=== PATIENT | male | born 1965 | race Caucasian/White ===

== ENCOUNTER → 2018-05-18 09:26 | Outpatient (CLI) | payer OTHER, SELFPAY ==
[2018-05-18 12:14] LABS: Absolute Lymphocyte Count 0.69 X10^3/ul (0.83-4.51); Absolute Neutrophil Count 2.5 X10^3/uL (2.0-7.7); Basophil# 0.01 X10^3/uL; Basophil% 0.3 % (0-1); Eosinophil# 0.18 X10^3/uL; Eosinophils% 4.7 % (0-5); Hematocrit 35.7 % (40-54); Hemoglobin 11.4 g/dl (13.0-16.5); Lymphocyte # 0.69 X10^3/ul (4.0); Lymphocyte % 18.1 % (19-41); Mean Corp Hgb Conc 31.9 g/gl (32-36); Mean Corpuscular Hgb 27.4 pg (27.0-32.0); Mean Corpuscular Volume 85.8 fL (80-94); Mean Platelet Vol. 10.6 fl (6.2-12.0); Monocyte% 10.5 % (0-10); Neutrophil # 2.51 X10^3/uL (2.7-7.7); Neutrophil % 65.6 % (47-70); Platelet Count 126 K/mm3 (150-450); RBC Distribution Width SD 45.9 fl (35.1-43.9); Red Blood Count 4.16 M/mm3 (4.6-6.2); White Blood Count 3.8 K/mm3 (4.4-11.0)
[2018-05-18 12:15] LABS: POSITIVE COUNT NO; POSITIVE DIFFERENTIAL NO; POSITIVE MORPHOLOGY NO
[2018-05-18 12:18] LABS: Color, Urine Yellow (Yellow); Glucose, Dipstick Normal (Normal); Ketone-Dipstick Negative (Negative); Leukocyte Esterase-Dipstick Negative /ul (Negative); Nitrite-Dipstick Negative (Negative); Occult Blood-Urine Negative /ul (Negative); Protein-Dipstick Negative (Negative); Specific Gravity, Urine 1.015 (1.002-1.030); Urine Bilirubin Dipstick Negative (Negative); Urine Clarity Sl. Cloudy (Clear); Urine Urobilinogen Normal (Normal)
[2018-05-18 12:29] LABS: ALB/GLOB Ratio 0.9 RATIO (0.9-2.4); AST(SGOT) 16 U/L (15-37); Alanine Aminotransfer ALT/SGPT 20 U/L (16-61); Albumin, Serum 3.8 g/dL (3.2-5.0); Alkaline Phosphatase 96 U/L (45-117); Anion Gap 9 (5-15); BUN 17 mg/dL (7-18); BUN/Creat Ratio 17.3 RATIO (10-20); Calcium,Total 8.5 mg/dL (8.5-10.1); Chloride 106 mmol/L (98-107); Cholesterol 115 mg/dL (200); Creatinine, Serum 0.98 mg/dL (0.70-1.30); EST Glomerular Filtration Rate 85 mL/min (>60); Est Glom Filt Rate - Afr Amer 103 mL/min (>60); Globulin 4.1 g/dL (2.2-4.2); Glucose 88 mg/dL (74-106); High Density Lipoprotein 25 mg/dL; PSA,Total - Annual Screen 1.21 ng/mL (0.00-4.00); Potassium 4.3 mmol/L (3.5-5.1); Protein, Total 7.9 g/dL (6.4-8.2); Sodium Level 139 mmol/L (136-145); Triglycerides 75 mg/dL; Very Low Density Lipoprotein 15 mg/dL (5-40)
== END ==
PROVIDERS: Family Provider Family Medicine; PCP Family Medicine; Visit Provider Family Medicine
DX: Z00.00 Encounter for general adult medical examination without abnormal findings (principal); I10 Essential (primary) hypertension
CPT/HCPCS: 36415; 80053; 80061; 81002; 84153; 85025; G0103

== ENCOUNTER → 2018-09-09 08:12 | Outpatient (CLI) | payer OTHER, SELFPAY ==
--- NOTE | 2018-09-09 08:14 | CT_ITS ---
STUDY: CT BRAIN WITH AND WITHOUT CONTRAST REASON FOR EXAM: Male, 53 years old. Headaches. RADIATION DOSAGE (If Supplied By Facility): CTDIvol = ( 44.99 ) mGy, DLP = ( 1547.23 ) mGycm TECHNIQUE: Transaxial CT imaging of the brain was performed pre and post contrast administration. The examination was performed with intravenous administration of 50mL ml of Isovue 370 contrast material. Individualized dose optimization techniques were used for this CT. COMPARISON: None. FINDINGS: Normal soft tissue structures. Normal calvarium. Normal size ventricles and extra-axial spaces for the patient's age. Normal white matter tracts of the cerebral hemispheres. Normal basal ganglia and thalami. Normal brainstem. Normal cerebellum. There is no intracranial hemorrhage. There are no findings of an acute ischemic infarction. Chronic inflammatory changes in the right maxillary sinus. A retention cyst in the left maxillary sinus. CT/Brain/Head W/WO Contrast IMPRESSION: No acute findings in the brain. Chronic inflammatory changes in the right maxillary sinus and a retention cyst in the left maxillary sinus Electronically Signed: Tylor Lang MD at 4:15 EST Tel , Service support ,
== END ==
PROVIDERS: Family Provider Family Medicine; PCP Family Medicine; Referring Provider Family Medicine; Visit Provider Family Medicine
DX: R51 Headache (principal); R42 Dizziness and giddiness
CPT/HCPCS: 70470; Q9967

== ENCOUNTER → 2018-12-07 07:14 | Outpatient (CLI) | payer OTHER, SELFPAY ==
[2018-12-07 10:32] LABS: Anion Gap 8 (5-15); BUN 26 mg/dL (7-18); BUN/Creat Ratio 18.3 RATIO (10-20); Chloride 99 mmol/L (98-107); Creatinine, Serum 1.42 mg/dL (0.70-1.30); EST Glomerular Filtration Rate 56 mL/min (>60); Est Glom Filt Rate - Afr Amer 67 mL/min (>60); Glucose 106 mg/dL (74-106); Potassium 3.2 mmol/L (3.5-5.1); Sodium Level 138 mmol/L (136-145)
== END ==
PROVIDERS: Family Provider Family Medicine; PCP Family Medicine; Referring Provider Family Medicine; Visit Provider Family Medicine
DX: I10 Essential (primary) hypertension (principal)
CPT/HCPCS: 36415; 80048

== ENCOUNTER → 2019-01-02 08:26 | Outpatient (CLI) | payer OTHER, SELFPAY ==
[2019-01-02 10:41] LABS: Anion Gap 7 (5-15); BUN 25 mg/dL (7-18); BUN/Creat Ratio 18.8 RATIO (10-20); Calcium,Total 8.6 mg/dL (8.5-10.1); Chloride 102 mmol/L (98-107); Creatinine, Serum 1.33 mg/dL (0.70-1.30); EST Glomerular Filtration Rate 60 mL/min (>60); Est Glom Filt Rate - Afr Amer 73 mL/min (>60); Glucose 109 mg/dL (74-106); Potassium 3.7 mmol/L (3.5-5.1); Sodium Level 137 mmol/L (136-145)
== END ==
PROVIDERS: Family Provider Family Medicine; PCP Family Medicine; Referring Provider Family Medicine; Visit Provider Family Medicine
DX: E87.6 Hypokalemia (principal)
CPT/HCPCS: 36415; 80048

== ENCOUNTER → 2019-06-08 08:48 | Outpatient (CLI) | payer OTHER, SELFPAY ==
[2019-06-08 10:31] LABS: Absolute Lymphocyte Count 0.49 X10^3/uL (0.83-4.51); Absolute Neutrophil Count 2.2 X10^3/uL (2.0-7.7); Basophil# 0.02 X10^3/uL; Basophil% 0.6 % (0-1); Eosinophil# 0.24 X10^3/uL; Eosinophils% 7.2 % (0-5); Hematocrit 36.3 % (40-54); Hemoglobin 11.5 g/dL (13.0-16.5); Lymphocyte # 0.49 X10^3/ul (4.0); Lymphocyte % 14.7 % (19-41); Mean Corp Hgb Conc 31.7 g/dL (32-36); Mean Corpuscular Hgb 26.6 pg (27.0-32.0); Mean Corpuscular Volume 83.8 fL (80-94); Mean Platelet Vol. 10.1 fl (6.2-12.0); Monocyte# 0.38 X10^3/uL; Monocyte% 11.4 % (0-10); NRBC Flagged by Analyzer 0 % (0-5); Neutrophil # 2.18 X10^3/uL (2.7-7.7); Neutrophil % 65.5 % (47-70); POSITIVE DIFFERENTIAL YES; Platelet Count 117 K/mm3 (150-450); RBC Distribution Width CV 14.4 % (11.6-14.6); RBC Distribution Width SD 43.7 fl (35.1-43.9); Red Blood Count 4.33 M/mm3 (4.6-6.2); White Blood Count 3.3 K/mm3 (4.4-11.0)
[2019-06-08 10:37] LABS: Differential Indicated SCAN CRITERIA MET
[2019-06-08 11:00] LABS: Hypochromasia RARE; Platelet Estimate SLT DEC (ADEQ)
[2019-06-08 11:01] LABS: ALB/GLOB Ratio 0.9 RATIO (0.9-2.4); AST(SGOT) 17 U/L (15-37); Alanine Aminotransfer ALT/SGPT 16 U/L (16-61); Albumin, Serum 3.7 g/dL (3.2-5.0); Alkaline Phosphatase 109 U/L (45-117); Anion Gap 5 (5-15); BUN 20 mg/dL (7-18); BUN/Creat Ratio 16.3 RATIO (10-20); Calcium,Total 8.6 mg/dL (8.5-10.1); Chloride 104 mmol/L (98-107); Cholesterol 117 mg/dL (200); Creatinine, Serum 1.23 mg/dL (0.70-1.30); EST Glomerular Filtration Rate 66 mL/min (>60); Est Glom Filt Rate - Afr Amer 79 mL/min (>60); Globulin 4.1 g/dL (2.2-4.2); Glucose 93 mg/dL (74-106); High Density Lipoprotein 29 mg/dL; PSA,Total - Annual Screen 1.72 ng/mL (0.00-4.00); Potassium 4.1 mmol/L (3.5-5.1); Protein, Total 7.8 g/dL (6.4-8.2); Sodium Level 140 mmol/L (136-145); Triglycerides 64 mg/dL; Very Low Density Lipoprotein 13 mg/dL (5-40)
[2019-06-08 15:44] LABS: Color, Urine Yellow (Yellow); Glucose, Dipstick Normal (Normal); Ketone-Dipstick Negative (Negative); Leukocyte Esterase-Dipstick Negative /ul (Negative); Nitrite-Dipstick Negative (Negative); Occult Blood-Urine Negative /ul (Negative); Protein-Dipstick Negative (Negative); Specific Gravity, Urine 1.005 (1.002-1.030); Urine Bilirubin Dipstick Negative (Negative); Urine Clarity Clear (Clear); Urine Urobilinogen Normal (Normal)
[2019-06-09 15:13] LABS: Pathologist Review Reviewed
== END ==
PROVIDERS: Family Provider Family Medicine; PCP Family Medicine; Referring Provider Family Medicine; Visit Provider Family Medicine
DX: Z00.00 Encounter for general adult medical examination without abnormal findings (principal); I10 Essential (primary) hypertension; E87.6 Hypokalemia; Z12.5 Encounter for screening for malignant neoplasm of prostate
CPT/HCPCS: 36415; 80053; 80061; 81002; 84153; 85025; G0103

== ENCOUNTER 2020-07-21 00:46 | Emergency (ER) | payer OTHER, SELFPAY ==
[2020-07-21 00:47] VITALS: BP 157/115; PULSE 98; RESP 16; TEMP 36.7; O2SAT 97; BMI 35.7
--- NOTE | 2020-07-21 00:59 | EKG12_ITS ---
Test Reason : SHOULDER PAIN Blood Pressure : / mmHG Vent. Rate : 094 BPM Atrial Rate : 094 BPM P-R Int : 174 ms QRS Dur : 090 ms QT Int : 368 ms P-R-T Axes : 030 009 028 degrees QTc Int : 460 ms Normal sinus rhythm Minimal voltage criteria for LVH, may be normal variant Borderline ECG Confirmed by ALEX GREENFIELD, CORTEZ ([id number]), general expeditor HECTOR BETTS ([id number]) on 07/23/2020 11:22:48 AM Referred By: REED Confirmed By:CORTEZ JOHNSON MD
--- NOTE | 2020-07-21 01:04 | RAD_ITS ---
STUDY: X-RAY CHEST REASON FOR EXAM: Male, 55 years old. Pain top of left shoulder. No history of trauma. TECHNIQUE: AP portable chest. COMPARISON: None. FINDINGS: The lungs are clear and expanded. There is no demonstrated pleural abnormality. Normal size heart. Normal mediastinum and kaitlin. Normal visualized pulmonary arteries. Normal visualized aortic arch and descending thoracic aorta. Normal visualized thoracic spine. Normal visualized ribs, clavicles, and shoulders. There is no demonstrated abnormality of the visualized soft tissue structures of the upper abdomen. RAD/Chest 1 View (Portable) IMPRESSION: Normal x-ray examination of the chest. Electronically Signed: Yuval Mosley MD at 1:26 EDT , Service support ,
[2020-07-21 01:10] LABS: Absolute Lymphocyte Count 1.03 X10^3/uL (0.83-4.51); Basophil# 0.01 X10^3/uL; Basophil% 0.3 % (0-1); Eosinophil# 0.05 X10^3/uL; Eosinophils% 1.5 % (0-5); Hematocrit 34.2 % (40-54); Hemoglobin 10.5 g/dL (13.0-16.5); Lymphocyte # 1.03 X10^3/ul (4.0); Lymphocyte % 30.6 % (19-41); Mean Corp Hgb Conc 30.7 g/dL (32-36); Mean Corpuscular Volume 78.1 fL (80-94); Mean Platelet Vol. 9.3 fl (6.2-12.0); Monocyte% 8.9 % (0-10); NRBC Flagged by Analyzer 0 % (0-5); Neutrophil # 1.95 X10^3/uL (2.7-7.7); Neutrophil % 57.8 % (47-70); POSITIVE COUNT YES; Platelet Count 79 K/mm3 (150-450); RBC Distribution Width CV 16.7 % (11.6-14.6); RBC Distribution Width SD 47.2 fl (35.1-43.9); Red Blood Count 4.38 M/mm3 (4.6-6.2); White Blood Count 3.4 K/mm3 (4.4-11.0)
[2020-07-21 01:11] LABS: Differential Indicated SCAN CRITERIA MET
--- NOTE | 2020-07-21 01:19 | ED.VISSUMM ---
- ER Visit Summary Date of Service: 07/21/20 Chief Complaint: Left shoulder pain History of Present Illness: The patient is a 55 M who presents with left shoulder pain that began tonight while he was driving. Patient states the pain is sharp. Patient states the pain is over the anterior aspect of the left shoulder. Patient states pain is worse with certain movements. Patient states the pain is better with standing. Patient denies any trauma or injury. Patient denies any shortness of breath or cough. Patient denies any chest pain or palpitations. Patient denies any nausea or vomiting. Physical Examination: Vital signs are stable. Patient is afebrile. Patient is in no acute distress. Oral mucosa is pink and moist. Neck is supple. Trachea is midline. There is no JVD noted. Heart was regular rate and rhythm. Lungs are clear and equal bilaterally. Abdomen is soft. Bowel sounds are normal. There is no tenderness. There is no rebound or guarding noted. Skin is warm dry. Cranial nerves II through XII are intact. There are no focal motor or sensory deficits noted. Extremities are intact. There is tenderness over the anterior aspect of the left shoulder. There is no deformity noted. Range of motion was slightly limited in flexion secondary to pain. There is no laxity appreciated. Radial pulses are equal bilaterally. Test Results: EKG showed normal sinus rhythm with a rate of 94. There are no acute ST or T wave changes. Portable chest x-ray was obtained. There is no acute cardiopulmonary process. There is no acute fracture of the shoulder. This was interpreted by the radiologist and reviewed by myself. CBC shows a mild thrombocytopenia of 79. Creatinine was slightly elevated at 1.42. Troponin was normal. Emergency Department Course and Treatment: Patient was advised of his findings. Patient was given a dose of [place] here. Patient was given a prescription for short course of [place]. Patient was instructed to use ice to the area. Patient was instructed to follow-up with his primary care physician in 5 to 7 days. Patient understood and was agreeable with the plan. All questions were answered. Disposition: Discharge home Impression: Tendinitis left shoulder This note was generated with [employer] software. It may contain incorrect words, spelling, and punctuation that were not noted in review of the chart prior to signing ED Disposition - Plan for ED Patient: Disposition: Home or Assisted Living Diagnosis: Tendinitis of left shoulder Instructions: ED Shoulder Pain Uncertain Cause Prescriptions: Hydrocodone Bitart/Apap 5-325 [[place] 5MG-325MG] 1 tab PO Q6H PRN PRN 3 Days #10 tab PRN Reason: Pain Prescription Printed Referrals: José Antonio Merritt MD [Primary Care Provider] - 3-5 Days
[2020-07-21 01:29] LABS: Anion Gap 5 (5-15); BUN 23 mg/dL (7-18); BUN/Creat Ratio 16.2 RATIO (10-20); Calcium,Total 8.7 mg/dL (8.5-10.1); Chloride 102 mmol/L (98-107); Creatinine, Serum 1.42 mg/dL (0.70-1.30); EST Glomerular Filtration Rate 55 mL/min (>60); Est Glom Filt Rate - Afr Amer 67 mL/min (>60); Estimated Creatinine Clearance 64.08 ml/min; Glucose 122 mg/dL (74-106); Potassium 3.4 mmol/L (3.5-5.1); Sodium Level 135 mmol/L (136-145)
[2020-07-21 01:31] LABS: Anisocytosis 1+; Hypochromasia 1+; Microcytosis 1+; Ovalocyte 1+; Platelet Estimate MOD DEC (ADEQ)
[2020-07-21] MEDS: HYDROcodone Bitartrate/Apap 5/325 Tablet PO (01:55)
[2020-07-21 01:56] VITALS: BP 119/58; PULSE 90; RESP 18
== END 2020-07-21 01:59 | disposition home or self-care (01) ==
PROVIDERS: Emergency Provider Emergency Medicine; PCP Family Medicine
DX: M75.92 Shoulder lesion, unspecified, left shoulder (principal); I10 Essential (primary) hypertension; H81.09 Meniere's disease, unspecified ear
CPT/HCPCS: 71045; 80048; 84484; 85025; 93005; 99285; A4216

== ENCOUNTER → 2020-08-08 07:16 | Outpatient (CLI) | payer OTHER, SELFPAY ==
[2020-07-21 00:47] VITALS: BMI 35.7
[2020-08-08 09:55] LABS: Color, Urine Yellow (Yellow); Glucose, Dipstick Normal (Normal); Ketone-Dipstick Negative (Negative); Leukocyte Esterase-Dipstick Negative /ul (Negative); Nitrite-Dipstick Negative (Negative); Occult Blood-Urine Negative /ul (Negative); Protein-Dipstick 30 mg/dl (Negative); Urine Bilirubin Dipstick Negative (Negative); Urine Clarity Clear (Clear); Urine Urobilinogen Normal (Normal)
[2020-08-08 10:21] LABS: ALB/GLOB Ratio 0.9 RATIO (0.9-2.4); AST(SGOT) 25 U/L (15-37); Alanine Aminotransfer ALT/SGPT 20 U/L (16-61); Albumin, Serum 3.9 g/dL (3.2-5.0); Alkaline Phosphatase 120 U/L (45-117); Anion Gap 3 (5-15); BUN 21 mg/dL (7-18); Calcium,Total 8.7 mg/dL (8.5-10.1); Chloride 105 mmol/L (98-107); Cholesterol 102 mg/dL (200); Creatinine, Serum 1.31 mg/dL (0.70-1.30); EST Glomerular Filtration Rate 61 mL/min (>60); Est Glom Filt Rate - Afr Amer 74 mL/min (>60); Globulin 4.2 g/dL (2.2-4.2); Glucose 104 mg/dL (74-106); High Density Lipoprotein 23 mg/dL; Potassium 3.5 mmol/L (3.5-5.1); Protein, Total 8.1 g/dL (6.4-8.2); Sodium Level 138 mmol/L (136-145); Triglycerides 65 mg/dL; Very Low Density Lipoprotein 13 mg/dL (5-40)
[2020-08-08 10:23] LABS: Absolute Neutrophil Count 1.4 X10^3/uL (2.0-7.7); Basophil# 0.01 X10^3/uL; Basophil% 0.4 % (0-1); Eosinophil# 0.04 X10^3/uL; Eosinophils% 1.5 % (0-5); Hematocrit 31.7 % (40-54); Hemoglobin 9.7 g/dL (13.0-16.5); Lymphocyte % 34.6 % (19-41); Mean Corp Hgb Conc 30.6 g/dL (32-36); Mean Corpuscular Hgb 24.5 pg (27.0-32.0); Mean Corpuscular Volume 80.1 fL (80-94); Mean Platelet Vol. 10.8 fl (6.2-12.0); Monocyte# 0.21 X10^3/uL; Monocyte% 8.1 % (0-10); NRBC Flagged by Analyzer 0 % (0-5); Neutrophil # 1.39 X10^3/uL (2.7-7.7); Neutrophil % 53.5 % (47-70); POSITIVE COUNT YES; Platelet Count 81 K/mm3 (150-450); RBC Distribution Width CV 17.8 % (11.6-14.6); RBC Distribution Width SD 51.3 fl (35.1-43.9); Red Blood Count 3.96 M/mm3 (4.6-6.2); White Blood Count 2.6 K/mm3 (4.4-11.0)
[2020-08-08 10:24] LABS: Differential Indicated SCAN CRITERIA MET
[2020-08-08 11:14] LABS: Platelet Estimate MOD DEC (ADEQ)
== END ==
PROVIDERS: PCP Family Medicine; Referring Provider Family Medicine; Visit Provider Family Medicine
DX: Z00.00 Encounter for general adult medical examination without abnormal findings (principal); I10 Essential (primary) hypertension; E87.6 Hypokalemia; R79.1 Abnormal coagulation profile
CPT/HCPCS: 36415; 80053; 80061; 81002; 85025

== ENCOUNTER → 2021-08-04 07:49 | Outpatient (CLI) | payer OTHER, SELFPAY ==
[2021-08-04 10:05] LABS: Absolute Neutrophil Count 3.7 X10^3/uL (2.0-7.7); Basophil# 0.04 X10^3/uL; Basophil% 0.8 % (0-1); Eosinophil# 0.28 X10^3/uL; Eosinophils% 5.3 % (0-5); Hemoglobin 14.6 g/dL (13.0-16.5); Lymphocyte % 13.2 % (19-41); Mean Corpuscular Hgb 28.3 pg (27.0-32.0); Mean Corpuscular Volume 83.3 fL (80-94); Mean Platelet Vol. 10.8 fl (6.2-12.0); Monocyte# 0.52 X10^3/uL; Monocyte% 9.8 % (0-10); NRBC Flagged by Analyzer 0 % (0-5); Neutrophil # 3.71 X10^3/uL (2.7-7.7); Neutrophil % 69.6 % (47-70); Platelet Count 163 K/mm3 (150-450); RBC Distribution Width CV 14.7 % (11.6-14.6); RBC Distribution Width SD 44.7 fl (35.1-43.9); Red Blood Count 5.16 M/mm3 (4.6-6.2); White Blood Count 5.3 K/mm3 (4.4-11.0)
== END ==
PROVIDERS: PCP Family Medicine
DX: D61.818 Other pancytopenia (principal); C83.8 Other non-follicular lymphoma
CPT/HCPCS: 36415; 85025

== ENCOUNTER → 2021-09-16 07:51 | Outpatient (CLI) | payer OTHER, SELFPAY ==
[2021-09-16 09:52] LABS: Absolute Lymphocyte Count 0.82 X10^3/uL (0.83-4.51); Absolute Neutrophil Count 4.4 X10^3/uL (2.0-7.7); Basophil# 0.05 X10^3/uL; Basophil% 0.8 % (0-1); Eosinophil# 0.34 X10^3/uL; Eosinophils% 5.3 % (0-5); Hematocrit 45.4 % (40-54); Hemoglobin 15.1 g/dL (13.0-16.5); Lymphocyte # 0.82 X10^3/ul (0.83-4.51); Lymphocyte % 12.9 % (19-41); Mean Corp Hgb Conc 33.3 g/dL (32-36); Mean Corpuscular Hgb 27.7 pg (27.0-32.0); Mean Corpuscular Volume 83.2 fL (80-94); Mean Platelet Vol. 10.2 fl (6.2-12.0); Monocyte# 0.61 X10^3/uL; Monocyte% 9.6 % (0-10); NRBC Flagged by Analyzer 0 % (0-5); Neutrophil # 4.42 X10^3/uL (2.7-7.7); Neutrophil % 69.2 % (47-70); Platelet Count 173 K/mm3 (150-450); RBC Distribution Width CV 14.4 % (11.6-14.6); RBC Distribution Width SD 42.8 fl (35.1-43.9); Red Blood Count 5.46 M/mm3 (4.6-6.2); White Blood Count 6.4 K/mm3 (4.4-11.0)
== END ==
PROVIDERS: PCP Family Medicine
DX: D61.818 Other pancytopenia (principal)
CPT/HCPCS: 36415; 85025

== ENCOUNTER 2021-10-08 07:25 | Outpatient (CLI) | payer OTHER, SELFPAY ==
[2021-10-08 10:21] LABS: Absolute Lymphocyte Count 0.66 X10^3/uL (0.83-4.51); Absolute Neutrophil Count 4.2 X10^3/uL (2.0-7.7); Basophil# 0.05 X10^3/uL; Basophil% 0.9 % (0-1); Eosinophil# 0.27 X10^3/uL; Eosinophils% 4.7 % (0-5); Hematocrit 42.3 % (40-54); Hemoglobin 13.9 g/dL (13.0-16.5); Lymphocyte # 0.66 X10^3/ul (0.83-4.51); Lymphocyte % 11.5 % (19-41); Mean Corp Hgb Conc 32.9 g/dL (32-36); Mean Corpuscular Hgb 27.5 pg (27.0-32.0); Mean Corpuscular Volume 83.8 fL (80-94); Mean Platelet Vol. 10.5 fl (6.2-12.0); Monocyte# 0.51 X10^3/uL; Monocyte% 8.9 % (0-10); NRBC Flagged by Analyzer 0 % (0-5); Neutrophil # 4.21 X10^3/uL (2.7-7.7); Platelet Count 188 K/mm3 (150-450); RBC Distribution Width CV 14.8 % (11.6-14.6); RBC Distribution Width SD 44.6 fl (35.1-43.9); Red Blood Count 5.05 M/mm3 (4.6-6.2); White Blood Count 5.8 K/mm3 (4.4-11.0)
[2021-10-08 10:38] LABS: ALB/GLOB Ratio 0.9 RATIO (0.9-2.4); AST(SGOT) 19 U/L (15-37); Alanine Aminotransfer ALT/SGPT 35 U/L (16-61); Albumin, Serum 3.9 g/dL (3.2-5.0); Alkaline Phosphatase 108 U/L (45-117); Anion Gap 6 (5-15); BUN 19 mg/dL (7-18); BUN/Creat Ratio 15.2 RATIO (10-20); Chloride 102 mmol/L (98-107); Creatinine, Serum 1.25 mg/dL (0.70-1.30); EST Glomerular Filtration Rate 64 mL/min (>60); Est Glom Filt Rate - Afr Amer 77 mL/min (>60); Globulin 4.2 g/dL (2.2-4.2); Glucose 128 mg/dL (74-106); LDH 137 U/L (87-241); Potassium 3.6 mmol/L (3.5-5.1); Protein, Total 8.1 g/dL (6.4-8.2); Sodium Level 137 mmol/L (136-145)
[2021-10-08 10:39] LABS: Uric Acid 9.1 mg/dL (3.5-7.2)
== END 2021-10-08 23:59 | disposition short-term general hospital (02) ==
LOC: MTLAB 07:31
PROVIDERS: Podiatrist; PCP Family Medicine
DX: C83.8 Other non-follicular lymphoma (principal); M10.00 Idiopathic gout, unspecified site
CPT/HCPCS: 36415; 80053; 83615; 84550; 85025; 86140

== ENCOUNTER 2021-11-19 07:36 | Outpatient (CLI) | payer OTHER, SELFPAY ==
[2021-11-19 10:29] LABS: Absolute Lymphocyte Count 0.79 X10^3/uL (0.83-4.51); Absolute Neutrophil Count 4.5 X10^3/uL (2.0-7.7); Basophil# 0.04 X10^3/uL; Basophil% 0.6 % (0-1); Eosinophils% 4.8 % (0-5); Hemoglobin 14.3 g/dL (13.0-16.5); Lymphocyte # 0.79 X10^3/ul (0.83-4.51); Lymphocyte % 12.6 % (19-41); Mean Corp Hgb Conc 32.5 g/dL (32-36); Mean Corpuscular Hgb 27.3 pg (27.0-32.0); Mean Corpuscular Volume 84.1 fL (80-94); Mean Platelet Vol. 10.9 fl (6.2-12.0); Monocyte# 0.56 X10^3/uL; NRBC Flagged by Analyzer 0 % (0-5); Neutrophil # 4.51 X10^3/uL (2.7-7.7); Neutrophil % 72.2 % (47-70); Platelet Count 168 K/mm3 (150-450); RBC Distribution Width CV 14.9 % (11.6-14.6); RBC Distribution Width SD 45.3 fl (35.1-43.9); Red Blood Count 5.23 M/mm3 (4.6-6.2); White Blood Count 6.3 K/mm3 (4.4-11.0)
[2021-11-19 11:16] LABS: ALB/GLOB Ratio 1.1 RATIO (0.9-2.4); AST(SGOT) 18 U/L (15-37); Alanine Aminotransfer ALT/SGPT 28 U/L (16-61); Alkaline Phosphatase 99 U/L (45-117); Anion Gap 7 (5-15); BUN 18 mg/dL (7-18); BUN/Creat Ratio 12.9 RATIO (10-20); Calcium,Total 9.2 mg/dL (8.5-10.1); Chloride 102 mmol/L (98-107); Creatinine, Serum 1.39 mg/dL (0.70-1.30); EST Glomerular Filtration Rate 57 mL/min (>60); Est Glom Filt Rate - Afr Amer 68 mL/min (>60); Globulin 3.8 g/dL (2.2-4.2); Glucose 129 mg/dL (74-106); LDH 152 U/L (87-241); Potassium 3.4 mmol/L (3.5-5.1); Protein, Total 7.8 g/dL (6.4-8.2); Sodium Level 138 mmol/L (136-145)
== END 2021-11-19 23:59 | disposition home or self-care (01) ==
LOC: MTLAB 07:38
PROVIDERS: PCP Family Medicine
DX: C83.8 Other non-follicular lymphoma (principal)
CPT/HCPCS: 36415; 80053; 83615; 85025

== ENCOUNTER 2021-12-02 14:07 | Outpatient (CLI) | payer OTHER, SELFPAY ==
--- NOTE | 2021-12-02 14:15 | RAD_ITS ---
STUDY: X-RAY - PELVIS AND LEFT HIP REASON FOR EXAM: Male, 56 years old. Pain. TECHNIQUE: 3 views of the pelvis and hip. COMPARISON: 05/12/2016. FINDINGS: There is a non-specific bowel gas pattern. Phleboliths. Normal bilateral iliac wings, sacroiliac joints and visualized sacrum. Normal bilateral superior and inferior pubic rami. Normal pubic symphysis. Normal bilateral ischial tuberosities. Stable arthrosis of both hips, left slightly greater than right. Slight progression of subchondral cyst formation in the left acetabulum. RAD/HIP, UNI W/ Pelvis 2-3 Views IMPRESSION: Arthrosis of both hips, left greater than right. Slight progression of left hip arthrosis. No acute abnormality, evidence of erosive change or fusion. Electronically Signed: Shoaib Jean MD at 9:27 EDT ,
[2021-12-02 18:16] LABS: Uric Acid 9.1 mg/dL (3.5-7.2)
== END 2021-12-02 23:59 | disposition home or self-care (01) ==
LOC: MTLAB 14:08
PROVIDERS: PCP Family Medicine; Referring Provider Family Medicine; Visit Provider Family Medicine
DX: M10.9 Gout, unspecified (principal); M25.552 Pain in left hip
CPT/HCPCS: 36415; 73502; 84550

== ENCOUNTER 2021-12-31 07:38 | Outpatient (CLI) | payer OTHER, SELFPAY ==
[2021-12-31 10:17] LABS: Absolute Lymphocyte Count 0.85 X10^3/uL (0.83-4.51); Absolute Neutrophil Count 5.2 X10^3/uL (2.0-7.7); Basophil# 0.06 X10^3/uL; Basophil% 0.8 % (0-1); Eosinophil# 0.27 X10^3/uL; Eosinophils% 3.8 % (0-5); Hematocrit 42.7 % (40-54); Hemoglobin 14.4 g/dL (13.0-16.5); Lymphocyte # 0.85 X10^3/ul (0.83-4.51); Lymphocyte % 11.9 % (19-41); Mean Corp Hgb Conc 33.7 g/dL (32-36); Mean Corpuscular Hgb 27.9 pg (27.0-32.0); Mean Corpuscular Volume 82.8 fL (80-94); Mean Platelet Vol. 10.7 fl (6.2-12.0); Monocyte# 0.68 X10^3/uL; Monocyte% 9.5 % (0-10); NRBC Flagged by Analyzer 0 % (0-5); Neutrophil # 5.22 X10^3/uL (2.7-7.7); Neutrophil % 73.2 % (47-70); Platelet Count 179 K/mm3 (150-450); RBC Distribution Width CV 14.8 % (11.6-14.6); RBC Distribution Width SD 44.8 fl (35.1-43.9); Red Blood Count 5.16 M/mm3 (4.6-6.2); White Blood Count 7.1 K/mm3 (4.4-11.0)
[2021-12-31 10:51] LABS: ALB/GLOB Ratio 1.1 RATIO (0.9-2.4); AST(SGOT) 19 U/L (15-37); Alanine Aminotransfer ALT/SGPT 31 U/L (16-61); Albumin, Serum 4.1 g/dL (3.2-5.0); Alkaline Phosphatase 116 U/L (45-117); Anion Gap 5 (5-15); BUN 24 mg/dL (7-18); BUN/Creat Ratio 18.8 RATIO (10-20); Calcium,Total 9.4 mg/dL (8.5-10.1); Chloride 102 mmol/L (98-107); Creatinine, Serum 1.28 mg/dL (0.70-1.30); EST Glomerular Filtration Rate 62 mL/min (>60); Est Glom Filt Rate - Afr Amer 75 mL/min (>60); Globulin 3.9 g/dL (2.2-4.2); Glucose 133 mg/dL (74-106); LDH 143 U/L (87-241); Potassium 3.6 mmol/L (3.5-5.1); Sodium Level 136 mmol/L (136-145)
== END 2021-12-31 23:59 | disposition home or self-care (01) ==
PROVIDERS: PCP Family Medicine
DX: C83.8 Other non-follicular lymphoma (principal)
CPT/HCPCS: 36415; 80053; 83615; 85025

== ENCOUNTER → 2022-02-12 | Outpatient (CLI) | payer OTHER, SELFPAY ==
[2022-02-12 10:02] LABS: Absolute Lymphocyte Count 0.76 X10^3/uL (0.83-4.51); Absolute Neutrophil Count 4.2 X10^3/uL (2.0-7.7); Basophil# 0.04 X10^3/uL; Basophil% 0.7 % (0-1); Eosinophil# 0.37 X10^3/uL; Eosinophils% 6.3 % (0-5); Hematocrit 41.4 % (40-54); Hemoglobin 13.6 g/dL (13.0-16.5); Lymphocyte # 0.76 X10^3/ul (0.83-4.51); Lymphocyte % 12.9 % (19-41); Mean Corp Hgb Conc 32.9 g/dL (32-36); Mean Corpuscular Hgb 27.9 pg (27.0-32.0); Mean Platelet Vol. 10.6 fl (6.2-12.0); Monocyte% 8.5 % (0-10); NRBC Flagged by Analyzer 0 % (0-5); Neutrophil # 4.17 X10^3/uL (2.7-7.7); Neutrophil % 70.9 % (47-70); Platelet Count 164 K/mm3 (150-450); RBC Distribution Width CV 14.1 % (11.6-14.6); RBC Distribution Width SD 43.5 fl (35.1-43.9); Red Blood Count 4.87 M/mm3 (4.6-6.2); White Blood Count 5.9 K/mm3 (4.4-11.0)
[2022-02-12 10:32] LABS: Hemoglobin A1c 5.4 % (3.8-5.6)
[2022-02-12 10:40] LABS: ALB/GLOB Ratio 1.1 RATIO (0.9-2.4); AST(SGOT) 15 U/L (15-37); Alanine Aminotransfer ALT/SGPT 28 U/L (16-61); Alkaline Phosphatase 99 U/L (45-117); Anion Gap 6 (5-15); BUN 17 mg/dL (7-18); BUN/Creat Ratio 13.7 RATIO (10-20); Calcium,Total 8.8 mg/dL (8.5-10.1); Chloride 107 mmol/L (98-107); Creatinine, Serum 1.24 mg/dL (0.70-1.30); EST Glomerular Filtration Rate 64 mL/min (>60); Est Glom Filt Rate - Afr Amer 78 mL/min (>60); Globulin 3.7 g/dL (2.2-4.2); Glucose 110 mg/dL (74-106); LDH 153 U/L (87-241); Potassium 4.3 mmol/L (3.5-5.1); Protein, Total 7.7 g/dL (6.4-8.2); Sodium Level 140 mmol/L (136-145)
== END | disposition home or self-care (01) ==
LOC: MTLAB 07:15
PROVIDERS: PCP Family Medicine; Referring Provider Family Medicine; Visit Provider Family Medicine
DX: R73.9 Hyperglycemia, unspecified (principal); C83.8 Other non-follicular lymphoma; E87.6 Hypokalemia
CPT/HCPCS: 36415; 80053; 83036; 83615; 85025

== ENCOUNTER → 2022-06-08 | Outpatient (CLI) | payer OTHER, SELFPAY | END | disposition home or self-care (01) | PROVIDERS: PCP Family Medicine; Visit Provider Podiatrist | DX: D21.21 Benign neoplasm of connective and other soft tissue of right lower limb, including hip (principal) ==

== ENCOUNTER 2023-11-08 08:23 | Day surgery (SDC) | payer OTHER, SELFPAY ==
[2023-11-08] VITALS (7 sets, daily range): BP systolic 122–135; BP diastolic 76–89; PULSE 95–116; RESP 16–17; TEMP 36.7–37.2; O2SAT 93–97; BMI 39.6
[2023-11-08] MEDS: Lactated Ringers 1,000 ML 15 ML IV (08:49)
--- OUTSIDE RECORDS SUMMARY | 2023-11-08 08:52 | XMS RPT_ITS | CCD ---
Author Name Unknown Address [address] [place] [address] Organization [facility] Care Team Providers Care Hospice Plan Administrator Name Role Phone José Antonio Meyer Unavailable Unavailable Unavailable José Antonio Meyer MD Primary Care Provider José Antonio Meyer MD Primary Care Provider José Antonio Meyer MD Primary Care Provider Tierney Palmer PA-C Unavailable José Antonio Meyer MD Primary Care Provider TIERNEY PALMER Referring Unavailable JOSÉ ANTONIO MEYER Primary Care Unavailab le TIERNEY PALMER Referring Unavailable JOSÉ ANTONIO MEYER Primary Care Unavailab le TIERNEY PALMER Referring Unavailable JOSÉ ANTONIO MEYER Primary Care Unavailab JOSÉ ANTONIO Bartholomew Referring Unavailab JOSÉ ANTONIO Bartholomew Primary Care Unavailab le TIERNEY PALEMR Referring Unavailable JOSÉ ANTONIO MEYER Primary Care Unavailab le TIERNEY PALMER Referring Unavailable JOSÉ ANTONIO MEYER Primary Care Unavailab Lupillo Bruno MD Unavailable José Antonio Meyer MD Primary Care Provider Omid Pickering MD Unavailable TIERNEY PALMER Attending Unavailable JOSÉ ANTONIO MEYER Primary Care Unavailab le TIERNEY PALMER Attending Unavailable JOSÉ ANTONIO MEYER Primary Care Unavailab le JOSÉ ANTONIO MEYER Attending Unavailab le JOSÉ ANTONIO MEYER Primary Care Unavailab le JOSÉ ANTONIO MEYER Attending JOSÉ ANTONIO Mg Primary Care UnavailJOSÉ ANTONIO Becerra Attending UnavailJOSÉ ANTONIO Becerra Primary Care UnavailTIERNEY Gutiérrez Attending Unavailable JOSÉ ANTONIO MEYER Primary Care Unavailab waldemar Medications Current Medications Medication Drug Class(es) Dates Sig (Normalized) Sig (Original) hydroCHLOROthiazide 12.5 mg / lisinopril 10 mg oral tablet (2 sources) Thiazide Diuretic, Angiotensin Converting Enzyme Inhibitor Start: 10-11-2023 End: 10-10-2024 take 10-12.5 mg by mouth once lisinopril-hydr oCHLOROthiazide (ZESTORETIC) 10-12.5 mg per tablet Take 1 tablet by mouth once daily. 90 tablet 3 10/11/2023 10/10/2024 Active Completed/Discontinued Medications Medication Drug Class(es) Dates Sig (Normalized) Sig (Original) aliskiren 300 mg oral tablet (8 sources) Renin Inhibitor Start: 09-27-2009 End: 07-01-2022 aliskiren hemifumarate(TEKTURN A 300 MG TAB) Take one(1) tablet daily. 0 09/27/2009 07/01/2022 Discontinued (Course of therapy completed) Problems Active Problems Problem Classification Problem Date Documented Date Episodic/Chronic Coagulation and hemorrhagic disorders (20 sources) Platelet count below reference range; Translations: [Thrombocytopenia, unspecified] Onset: 08-20-2008 08-20-2008 Chronic Conditions associated with dizziness or vertigo (17 sources) Meniere's disease; Translations: [Meniere's disease, unspecified ear] Onset: 11-02-2018 01-29-2022 Chronic Deficiency and other anemia (17 sources) Pancytopenia; Translations: [Other pancytopenia] Onset: 08-08-2020 01-29-2022 Chronic Diabetes mellitus without complication (20 sources) Hyperglycemia; Translations: [Hyperglycemia, unspecified] Onset: 12-30-2021 01-29-2022 Episodic Essential hypertension (17 sources) Benign hypertension; Translations: [Essential (primary) hypertension] Onset: 04-01-2017 01-29-2022 Chronic Gout and other crystal arthropathies (17 sources) Gout; Translations: [Gout, unspecified] Onset: 12-01-2021 01-29-2022 Chronic Non-Hodgkin`s lymphoma (9 sources) Marginal zone lymphoma of spleen; 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, spleen] Onset: 02-10-2021 Chronic Other connective tissue disease (1 source) Ganglion of foot; Translations: [Ganglion, unspecified ankle and foot] 10-28-2023 Episodic Other ear and sense organ disorders (7 sources) Sensorineural hearing loss, bilateral; Translations: [Sensorineural hearing loss, bilateral] Onset: 02-19-2023 02-19-2023 Chronic Other non-traumatic joint disorders (1 source) Multiple joint pain; Translations: [Pain in unspecified joint] Episodic Other non-traumatic joint disorders (1 source) Pain in left knee; Translations: [Pain in joint, lower leg] Episodic Other nutritional; endocrine; and metabolic disorders (17 sources) Obesity; Translations: [Obesity, unspecified] Onset: 05-07-2006 05-07-2006 Chronic Spondylosis; intervertebral disc disorders; other back problems (1 source) Acute low back pain; Translations: [Acute left-sided low back pain without sciatica] Episodic Unclassified (1 source) Pre-Op Exam Onset: 10-25-2023 Past or Other Problems Problem Classification Problem Date Documented Da te Episodic/Chronic Abdominal pain (17 sources) Abdominal pain; Translations: [Unspecified abdominal pain] Onset: 10-19-2019 01-29-2022 Episodic Conditions associated with dizziness or vertigo (20 sources) Dizziness; Translations: [Dizziness and giddiness] Onset: 07-20-2018 01-29-2022 Episodic Fluid and electrolyte disorders (17 sources) Hypokalemia; Translations: [Hypokalemia] Onset: 12-08-2018 01-29-2022 Episodic Headache; including migraine (17 sources) Headache; Translations: [Headaches] Onset: 09-06-2018 01-29-2022 Episodic Other aftercare (3 sources) Removal of sutures done; Translations: [Encounter for removal of sutures] Onset: 08-26-2020 01-29-2022 Episodic Other and unspecified benign neoplasm (17 sources) Dermal cellular nevus ; Translations: [Other benign neoplasm of skin, unspecified] Onset: 08-14-2020 01-29-2022 Episodic Other bone disease and musculoskeletal deformities (17 sources) Costal chondritis; Translations: [Chondrocostal junction syndrome [Tietze]] Onset: 07-29-2020 01-29-2022 Episodic Other connective tissue disease (5 sources) Tendinitis of shoulder region; Translations: [Other enthesopathies, not elsewhere classified] Onset: 02-19-2023 02-19-2023 Episodic Other gastrointestinal disorders (5 sources) Splenomegaly; Translations: [Splenomegaly, not elsewhere classified] Onset: 02-19-2023 02-19-2023 Episodic Other non-epithelial cancer of skin (17 sources) Carcinoma in situ of skin of upper limb; Translations: [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, including shoulder] Onset: 08-23-2020 01-29-2022 Episodic Other non-traumatic joint disorders (18 sources) Hip pain; Translations: [Pain in left hip] Onset: 12-01-2021 01-29-2022 Episodic Other non-traumatic joint disorders (13 sources) Shoulder pain; Translations: [Pain in left shoulder] Onset: 07-29-2020 01-29-2022 Episodic Other non-traumatic joint disorders (4 sources) Pain in left shoulder; Translations: [Pain in joint, shoulder region] Onset: 07-29-2020 01-29-2022 Episodic Other screening for suspected conditions (not mental disorders or infectious disease) (19 sources) Patient encounter status; Translations: [Encounter for screening for malignant neoplasm of prostate] Onset: 05-10-2018 01-29-2022 Episodic Other skin disorders (1 source) Other hypertrophic disorders of the skin; Translations: [Skin tag] Onset: 11-09-2022 Episodic Viral infection (17 sources) Herpes zoster; Translations: [Zoster without complications] Onset: 01-01-2020 01-29-2022 Episodic Results Test Name Value Interpretation Reference Range Facil ity Vital Signs Date Time Vital Sign Value Performing Clinician Faci lity 10-25-2023 10:46-0500 Body height 179.1 cm José Antonio Meyer MD Work Phone: [facility] 10-25-2023 10:46-0500 Body temperature 97.2 [degF] José Antonio Meyer MD Work Phone: [facility] 10-25-2023 10:46-0500 Body weight 129.5 kg José Antonio Meyer MD Work Phone: [facility] 10-25-2023 10:46-0500 Diastolic blood pressure 82 mm[Hg] José Antonio Meyer MD Work Phone: [facility] 10-25-2023 10:46-0500 Heart rate 88 /min José Antonio Meyer MD Work Phone: [facility] 10-25-2023 10:46-0500 Respiratory rate 18 /min José Antonio Meyer MD Work Phone: [facility] 10-25-2023 10:46-0500 SaO2% (BldA) [Mass fraction] 98 % José Antonio Meyer MD Work Phone: [facility] 10-25-2023 10:46-0500 Systolic blood pressure 138 mm[Hg] José Antonio Meyer MD Work Phone: [facility] 07-01-2022 14:50-0400 Body weight 124.29 kg Tierney Black PA-C Work Phone: [facility] 07-01-2022 14:50-0400 Diastolic blood pressure 84 mm[Hg] Tierney Black PA-C Work Phone: [facility] 07-01-2022 14:50-0400 Heart rate 74 /min Tierney Black PA-C Work Phone: [facility] 07-01-2022 14:50-0400 Respiratory rate 16 /min Tierney Black PA-C Work Phone: [facility] 07-01-2022 14:50-0400 Systolic blood pressure 126 mm[Hg] Tierney Black PA-C Work Phone: [facility] 06-15-2022 12:58-0400 Body temperature 97.5 [degF] José Antonio Meyer MD Work Phone: [facility] 06-15-2022 12:58-0400 Body weight 125.01 kg José Antonio Meyer MD Work Phone: [facility] 06-15-2022 12:58-0400 Diastolic blood pressure 88 mm[Hg] José Antonio Meyer MD Work Phone: [facility] 06-15-2022 12:58-0400 Heart rate 92 /min José Antonio Meyer MD Work Phone: [facility] 06-15-2022 12:58-0400 Respiratory rate 14 /min José Antonio Meyer MD Work Phone: [facility] 06-15-2022 12:58-0400 SaO2% (BldA) [Mass fraction] 96 % José Antonio Meyer MD Work Phone: [facility] 06-15-2022 12:58-0400 Systolic blood pressure 138 mm[Hg] José Antonio Meyer MD Work Phone: [facility] 01-30-2022 21:42-0400 Body temperature 98.2 [degF] José Antonio Meyer MD Work Phone: [facility] 01-30-2022 21:42-0400 Body weight 127.01 kg José Antonio Meyer MD Work Phone: [facility] 01-30-2022 21:42-0400 Diastolic blood pressure 82 mm[Hg] José Antonio Meyer MD Work Phone: [facility] 01-30-2022 21:42-0400 Heart rate 87 /min José Antonio Meyer MD Work Phone: [facility] 01-30-2022 21:42-0400 Respiratory rate 14 /min José Antonio Meyer MD Work Phone: [facility] 01-30-2022 21:42-0400 Systolic blood pressure 141 mm[Hg] José Antonio Meyer MD Work Phone: [facility] 12-01-2021 09:35-0400 Body temperature 98.2 [degF] José Antonio Meyer MD Work Phone: [facility] 12-01-2021 09:35-0400 Body weight 127.01 kg José Antonio Meyer MD Work Phone: [facility] 12-01-2021 09:35-0400 Diastolic blood pressure 82 mm[Hg] José Antonio Meyer MD Work Phone: [facility] 12-01-2021 09:35-0400 Heart rate 87 /min José Antonio Meyer MD Work Phone: [facility] 12-01-2021 09:35-0400 Respiratory rate 14 /min José Antonio Meyer MD Work Phone: [facility] 12-01-2021 09:35-0400 SaO2% (BldA) [Mass fraction] 98 % José Antonio Meyer MD Work Phone: [facility] 12-01-2021 09:35-0400 Systolic blood pressure 141 mm[Hg] José Antonio Meyer MD Work Phone: [facility] 11-03-2021 12:47-0500 Body height 180.34 cm José Antoniosiri Rosason Work Phone: MK-Alhgvhcirrgr-Bv [place] [address] DO Work Phone: 11-03-2021 12:47-0500 Body mass index (BMI) [Ratio] 38.49 kg/m2 José Antonio Meyer Work Phone: FE-Kovjjmupztja-Vt [place] [address] DO Work Phone: 11-03-2021 12:47-0500 Body surface area Derived from formula 2.42 m2 José Antonio Meyer Work Phone: BN-Xtetkdjjpnrc-Qo [place] [address] DO Work Phone: 11-03-2021 12:47-0500 Body temperature 96.2 [degF] José Antonio Meyer Work Phone: BN-Saasgvozdvfa-Eo [place] [address] DO Work Phone: 11-03-2021 12:47-0500 Body weight 125.19 kg José Antonio Meyer Work Phone: JM-Eqdnxqbvxogh-Mm [place] [address] DO Work Phone: Encounters Encounter Date Encounter Type Care Provider Facility Start: 10-28-2023 Telephone encounter José Antonio Meyer MD Work Phone: [facility] Procedures Date Procedure Procedure Detail Performing Clinician Start: 07-01-2022 Comprehensive metabo lic panel Tierney Palmer PA-C Work Phone: Start: 06-18-2022 Lipid 1996 panel - S cathy or Plasma Tierney Palmer PA-C Work Phone: Start: 03-30-2022 Adult depression scr eening assessment Guillaume Garcia MD Work Phone: Start: 05-25-2017 Colonoscopy José Antonio sharp MD Work Phone: Plan of Treatment Date Care Activity Detail Author Start: 06-18-2027 Lipid 1996 panel - Serum or Plasma Lipid Screening [facility] Start: 06-18-2027 Lipid panel Lipid Screening [facility] Start: 06-18-2027 LIPID SCREEN LIPID SCREEN [facility] Start: 06-18-2027 PROSTATE CANCER SCREENING DISCUSSION PROSTATE CANCER SCREENING DISCUSSION [facility] Start: 06-18-2027 Prostate specific antigen measurement Prostate Cancer Screening Discussion [facility] Start: 10-11-2026 Diabetes Screening Diabetes Screening [facility] Start: 07-28-2026 Diabetes Screening Diabetes Screening [facility] Start: 05-26-2026 Diabetes Screening Diabetes Screening [facility] Start: 03-12-2026 LIPID SCREEN LIPID SCREEN [facility] Start: 03-12-2026 PROSTATE CANCER SCREENING DISCUSSION PROSTATE CANCER SCREENING DISCUSSION [facility] Start: 01-25-2026 DIABETES SCREEN DIABETES SCREEN [facility] Start: 11-25-2025 DIABETES SCREEN DIABETES SCREEN [facility] Start: 07-01-2025 DIABETES SCREEN DIABETES SCREEN [facility] Start: 06-18-2025 DIABETES SCREEN DIABETES SCREEN [facility] Start: 10-25-2024 Annual PCP Team Chronic Disease Visit Annual PCP Team Chronic Disease Visit [facility] Start: 06-25-2024 DIABETES SCREEN DIABETES SCREEN [facility] Start: 11-09-2023 ANNUAL PCP TEAM CHRONIC DISEASE VISIT ANNUAL PCP TEAM CHRONIC DISEASE VISIT [facility] Start: 10-17-2023 Covid-19 Vaccine () Covid-19 Vaccine () [facility] Start: 09-20-2023 Depression Assessment Depression Assessment [facility] Start: 06-15-2023 ANNUAL PCP TEAM CHRONIC DISEASE VISIT ANNUAL PCP TEAM CHRONIC DISEASE VISIT [facility] Start: 05-21-2023 Covid-19 Vaccine () Covid-19 Vaccine () [facility] Start: 05-21-2023 Influenza vaccination Influenza Vaccine (#1) [facility] Start: 03-30-2023 Adult depression screening assessment DEPRESSION SCREENING [facility] Start: 10-01-2022 Covid-19 Vaccine (5 - Pfizer risk series) Covid-19 Vaccine (5 - Pfizer risk series) [facility] Start: 09-20-2022 DEPRESSION ASSESSMENT DEPRESSION ASSESSMENT [facility] Start: 06-21-2022 End: 08-21-2022 Hemoglobin A1c in Blood HGB A1C Lab Routine Hyperglycemia Expected: 06/21/2022, Expires: 08/21/2022 [facility] Work Phone: Immunizations Immunization Date Immunization Notes Care Provider Gareth clark 09-08-2023 Influenza, injectabl e, Madin Loreto Canine Kidney, preservative free, quadrivalent José Antonio Meyer MD Work Phone: [facility] 09-03-2022 influenza, injectabl e, quadrivalent, preservative free José Antonio Meyer MD Work Phone: [facility] 09-03-2022 influenza virus vacc ine, unspecified formulation Tierney Palmer PA-C Work Phone: [facility] 08-20-2021 influenza, injectabl e, quadrivalent, preservative free José Antonio Meyer MD Work Phone: [facility] 07-28-2021 influenza nasal, unspecified formulation José Antonio Meyer MD Work Phone: [facility] 07-29-2020 influenza, injectabl e, quadrivalent, preservative free José Antonio Meyer MD Work Phone: [facility] Payers Date Payer Category Payer Unknown [id number] 2022 Unknown [id number] 2021 Unknown 2016 Unknown NASEEM GUSMAN [id number] 2016-Present [phone] [address] [place] [address] PPO [id number] Social History Date Type Detail Facility Start: 04-06-2011 End: 07-01-2022 Tobacco smoking status NHIS Never smoked tobacco [facility] Start: 04-06-2011 End: 06-15-2022 Tobacco use and exposure User of smokeless tobacco [facility] History of tobacco use [facility] Start: 01-29-2022 End: 10-25-2023 Alcohol intake Current drinker of alcohol (finding) [facility] Start: 1965 Sex Assigned At Not on file [facility] Start: 06-05-2022 End: 07-01-2022 Exposure to SARS-CoV-2 (event) Not sure [facility] Start: 07-01-2022 Tobacco use and exposure Forme r smokeless tobacco user [facility] Start: 01-28-2023 End: 06-01-2023 History of Social function [facility] Start: 01-28-2023 End: 06-01-2023 Tobacco use panel [facility] Adult Depression Scr eening Assessment 0 [facility] Clinical Notes 08-05-2021 to 10-28-2023 Telephone Encounter - Quintin Fatima LPN - 10/28/2023 6:16 PM José Antonio Gonzales MD - 10/28/2023 3:43 PM Quintin Howell LPN - 10/25/2023 10:40 AM Nikita Garrido LPN - 06/15/2022 1:01 PM EDT Note Date & Type Note Facility 10-28-2023 Miscellaneous Notes Surgical clearance and office note successfully faxed today to Dante HIDALGO at [facility] to fax # [phone]. Fax confirmation received. All paperwork to be scanned into patient's chart. Quintin Fatima LPN October 28, 2023 6:20 PM documented in this encounter [facility] 10-28-2023 Note HNO ID: [id number] Author: JOSÉ ANTONIO MEYER MD Service: ? Author Type: Physician Type: Progress Notes Filed: 10/28/2023 15:44 Note Text: This note was created using J[employer]. Subjective Alessio Gold is a 58 year old male. He presents today for preop clearance for upcoming foot surgery for ganglion cyst to his foot. He has not had any prior difficulties with anesthesia. He denies any cardiovascular, pulmonary, or neurological symptoms. Review of Systems Constitutional: Negative. HENT: Negative. Eyes: Negative. Respiratory: Negative. Cardiovascular: Negative. Gastrointestinal: Negative. Endocrine: Negative. Genitourinary: Negative. Musculoskeletal: Negative. Skin: Negative. Allergic/Immunologic: Negative. Neurological: Negative. Hematological: Negative. Psychiatric/Behavioral: Negative. Objective BP 138/82 (BP Site: Left Arm, BP Position: Sitting, BP Cuff Size: Large Adult) Pulse 88 Temp 36.2 ?C (97.2 ?F) (Temporal) Resp 18 Ht 179.1 cm (5' 10.5 ) Wt 129.5 kg (285 lb 8 oz) SpO2 98% BMI 40.39 kg/m? Physical Exam Vitals reviewed. Constitutional: Appearance: Normal appearance. HENT: Head: Normocephalic and atraumatic. Nose: Nose normal. Eyes: Extraocular Movements: Extraocular movements intact. Pupils: Pupils are equal, round, and reactive to light. Cardiovascular: Rate and Rhythm: Normal rate and regular rhythm. Pulmonary: Effort: Pulmonary effort is normal. Breath sounds: Normal breath sounds. Abdominal: General: Bowel sounds are normal. Palpations: Abdomen is soft. Musculoskeletal: General: Normal range of motion. Cervical back: Normal range of motion and neck supple. Skin: General: Skin is warm and dry. Capillary Refill: Capillary refill takes less than 2 seconds. Neurological: General: No focal deficit present. Mental Status: He is alert and oriented to person, place, and time. Mental status is at baseline. Psychiatric: Mood and Affect: Mood normal. Behavior: Behavior normal. Assessment and Plan Encounter Diagnosis ICD-10-CM 1. Preop examination Z01.818 2. Ganglion cyst of foot M67.479 Patient is medically maximized for procedure. He is cleared for anesthesia. José Antonio Meyer MD [facility] 10-28-2023 History of Present illness Narrative This note was created using [employer]. Subjective Alessio Gold is a 58 year old male. He presents today for preop clearance for upcoming foot surgery for ganglion cyst to his foot. He has not had any prior difficulties with anesthesia. He denies any cardiovascular, pulmonary, or neurological symptoms. Review of Systems Constitutional: Negative. HENT: Negative. Eyes: Negative. Respiratory: Negative. Cardiovascular: Negative. Gastrointestinal: Negative. Endocrine: Negative. Genitourinary: Negative. Musculoskeletal: Negative. Skin: Negative. Allergic/Immunologic: Negative. Neurological: Negative. Hematological: Negative. Psychiatric/Behavioral: Negative. Objective BP 138/82 (BP Site: Left Arm, BP Position: Sitting, BP Cuff Size: Large Adult) Pulse 88 Temp 36.2 C (97.2 F) (Temporal) Resp 18 Ht 179.1 cm (5' 10.5 ) Wt 129.5 kg (285 lb 8 oz) SpO2 98% BMI 40.39 kg/m Physical Exam Vitals reviewed. Constitutional: Appearance: Normal appearance. HENT: Head: Normocephalic and atraumatic. Nose: Nose normal. Eyes: Extraocular Movements: Extraocular movements intact. Pupils: Pupils are equal, round, and reactive to light. Cardiovascular: Rate and Rhythm: Normal rate and regular rhythm. Pulmonary: Effort: Pulmonary effort is normal. Breath sounds: Normal breath sounds. Abdominal: General: Bowel sounds are normal. Palpations: Abdomen is soft. Musculoskeletal: General: Normal range of motion. Cervical back: Normal range of motion and neck supple. Skin: General: Skin is warm and dry. Capillary Refill: Capillary refill takes less than 2 seconds. Neurological: General: No focal deficit present. Mental Status: He is alert and oriented to person, place, and time. Mental status is at baseline. Psychiatric: Mood and Affect: Mood normal. Behavior: Behavior normal. Assessment and Plan Encounter Diagnosis ICD-10-CM 1. Preop examination Z01.818 2. Ganglion cyst of foot M67.479 Patient is medically maximized for procedure. He is cleared for anesthesia. José Antonio Meyer MD Patient in the office today for a pre-op exam. Patient is having a procedure done at [facility] on with Dr. Sweeney. Surgery is excision of R foot ganglion cyst. Patient denies any concerns with upcoming procedure. No refills needed today. Patient gave verbal permission that it is OK to notify him thru MyChart for surgical form faxed. Quintin Fatima LPN October 25, 2023 10:50 AM documented in this encounter [facility] 10-25-2023 Note HNO ID: [id number] Author: QUINTIN FATIMA LPN Service: ? Author Type: LICENSED NURSE Type: Progress Notes Filed: 10/28/2023 15:44 Note Text: Patient in the office today for a pre-op exam. Patient is having a procedure done at [facility] on with Dr. Sweeney. Surgery is excision of R foot ganglion cyst. Patient denies any concerns with upcoming procedure. No refills needed today. Patient gave verbal permission that it is OK to notify him thru MyChart for surgical form faxed. Quintin Fatima LPN October 25, 2023 10:50 AM [facility] 10-11-2023 Note HNO ID: [id number] Author: JOSÉ ANTONIO MEYER MD Service: ? Author Type: Physician Type: Progress Notes Filed: 10/11/2023 13:20 Note Text: This note was created using [employer]. Subjective Alessio Gold is a 58 year old male.Patient in the office today with concerns of elevated blood pressures. Patient had a routine visit at his oncologist where bp was 176/91. Patient's BP is elevated today. Patient states he has taken all medications today. He denies abnormal cardiac symptoms today. Dr. Meyer notified of elevated bp. Patient is also concerned because glucose is 141. Review of Systems Constitutional: Negative. HENT: Negative. Eyes: Negative. Respiratory: Negative. Cardiovascular: Negative. Gastrointestinal: Negative. Endocrine: Negative. Genitourinary: Negative. Musculoskeletal: Negative. Skin: Negative. Allergic/Immunologic: Negative. Neurological: Negative. Hematological: Negative. Psychiatric/Behavioral: Negative. Objective BP 158/98 (BP Site: Right Arm, BP Position: Sitting) Pulse 87 Temp 36.9 ?C (98.4 ?F) (Temporal) Resp 18 Ht 179.1 cm (5' 10.5 ) Wt 130.4 kg (287 lb 6 oz) SpO2 98% BMI 40.65 kg/m? Physical Exam Vitals reviewed. Constitutional: Appearance: Normal appearance. HENT: Head: Normocephalic and atraumatic. Nose: Nose normal. Eyes: Extraocular Movements: Extraocular movements intact. Pupils: Pupils are equal, round, and reactive to light. Cardiovascular: Rate and Rhythm: Normal rate and regular rhythm. Pulmonary: Effort: Pulmonary effort is normal. Breath sounds: Normal breath sounds. Abdominal: General: Bowel sounds are normal. Palpations: Abdomen is soft. Musculoskeletal: General: Normal range of motion. Cervical back: Normal range of motion and neck supple. Skin: General: Skin is warm and dry. Capillary Refill: Capillary refill takes less than 2 seconds. Neurological: General: No focal deficit present. Mental Status: He is alert and oriented to person, place, and time. Mental status is at baseline. Psychiatric: Mood and Affect: Mood normal. Behavior: Behavior normal. Assessment and Plan Encounter Diagnosis ICD-10-CM 1. Hypertension, benign I10 2. Hyperglycemia R73.9 HGB A1C 3. Sensorineural hearing loss (SNHL) of both ears H90.3 Add lisinopril to current dose of hydrochlorothiazide. Continue amlodipine. Check hemoglobin A1c due to elevated glucose. Follow-up in 1 month with readings. Reduce salt. Reduce stress. Reduce weight. Increase exercise. José Antonio Meyer MD [facility] 10-11-2023 Note HNO ID: [id number] Author: QUINTIN FATIMA LPN Service: ? Author Type: LICENSED NURSE Type: Progress Notes Filed: 10/11/2023 13:20 Note Text: Patient in the office today with concerns of elevated blood pressures. Patient had a routine visit at his oncologist where bp was 176/91. Patient's BP is elevated today. Patient states he has taken all medications today. He denies abnormal cardiac symptoms today. Dr. Meyer notified of elevated bp. Patient is also concerned because glucose is 141. No refills needed today. Quintin Fatima, HEAD B[employer] GRINDER October 11, 2023 11:43 AM [facility] 10-01-2023 Note HNO ID: [id number] Author: TIERNEY PALMER PA-C Service: ? Author Type: Physician Rn Otolaryngology Type: Progress Notes Filed: 10/01/2023 09:17 Note Text: Diagnosis: Marginal zone lymphoma of spleen (disorder) and Pancytopenia ( Date of Dx:08/08/2020 ) CLINICAL SUMMARY In ~ 2007, he developed severe thrombocytopenia reportedly discovered by routine lab testing performed when he had a physical for work. His platelets were reportedly 1, and he was hospitalized. Bone marrow exam was performed. He saw Dr. Carolann Miller at [facility], and was treated with IV infusions q wk x 4, reportedly for extended periods of time. His CBC was eventually checked annually thereafter. He does not recall the name of the drug he was given. He does not recall Rituxan, but he does recall the diagnosis of ITP. In 12/2019, he developed shingles involving the left side of his lower torso. The pain was 6-8/10 severity, and by 08/2020, it was 2-3/10. He describes it as dull aching pain. He was given medicine for it and had vomiting for 3 days. It was a steroid medicine. . In 07/2020, he developed pain involving the left lower rib cage, and he was given Daypro 600 mg for costochondritis, which he quit after 3 days due to upset stomach. He took ES Tylenol instead. No labs were done at that time. He had nightsweats for ~ 1 month in late 2019, especially when first going to sleep. At times, they were drenching. Labs at [facility] on 08/08/20: CMP revealed BUN 21, creatinine 1.31, alkaline phosphatase 120, and no other remarkable abnormality. Cholesterol 102, triglycerides 65, HDL cholesterol 23 on 08/08/20. CBC revealed WBC 2.6, hemoglobin 9.7, MCV 80.1, platelets 81. ANC was 1.4. ALC was 0.9. Platelets were moderately decreased. No hx of SLE or RA. No hx of transfusion. No hx of liver problems, hepatitis or jaundice. No hx of hepatitis B or C. CT chest 09/22/20 revealed no acute abnormalities or suspicious lesions identified in the thorax. CT abd/pelvis 09/22/20 revealed significant splenomegaly. The spleen measured at least 32 cm longitudinal x 27 cm oblique transverse diameter. There was mass effect on the stomach. The left kidney and small bowel were displaced medially. The spleen was homogeneous. Bone marrow asp/bx 09/27/20 revealed ~80% cellularity with maturing trilineage hematopoiesis and mild megakaryocytic hyperplasia. There was involvement by a monoclonal kappa B-cell lymphoma, accounting for ~20% of marrow cellularity. Flow cytometry revealed a nonspecific phenotype (CD5-, CD10-, CD103-) c/w marginal zone lymphoma or less likely, lymphoplasmacytic lymphoma. However MYD88 mutation detection by PCR was negative for the MYD88 L265P mutation. Plasma cells (<5%) were polytypic. Karyotypic analysis was normal. CT chest 01/20/21 revealed splenomegaly which was present previously. No lymphadenopathy or suspicious lesions identified within the thorax. CT abd/pelvis 01/20/21 revealed severe splenomegaly, present previously, at least 27 cm oblique transverse and 31 cm longitudinal diameter. There was associated mass effect on adjacent stomach and bowel. The left kidney was displaced to the midline. There was tortuosity and dilatation of the splenic vein as previously noted. There was good flow within the splenic and portal veins. No KERI. Hep B surface antigen and core antibody, and Hep C antibody were non-reactive on 10/14/20. SPEP was without M-spike on 10/14/20. IgG 1966 (H), IgA 88 (L), IgM 16 (L) on 10/14/20. LDH 253 on 09/16/20, 251 on 09/27/20, 213 on 01/08/21. CT A/P 06/16/21 revealed improved splenomegaly. The spleen measured 19.5 cm in length craniocaudally, 31 cm previously. No splenic mass. CHIEF COMPLAINT lymphoma INTERVAL HISTORY He started Rituxan 01/27/21, and completed 8 weekly infusions on 03/19/21. No problems with appetite or weight loss. His weight is up. He denies drenching night sweats. Energy is okay. No abdominal pain. Post herpetic neuralgia has not recurred. No pruritus. No bleeding or bruising. No infections. 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 He is following with Ortho in [place] and received a cortisone injection and gel injections with temporary relief. He is considering knee replacement next Spring. He is considering THC gummies. He has an appt again in a few weeks. He denies palpable KERI. He has had less ear congestion lately, and has not had to have myringotomy tube placement. His auditory symptoms fluctuate week to week. He was considering a cochlear implant at [facility], but he has been reluctant to have the surgery performed. PAST MEDICAL HISTORY HBP Menieres disease dx 2 years ago. Hearing loss began in left ear years ago, right ear 3-4 years ago. Hearing aide > 1 yr ago. back pain x years Shingles COVID19 infection 05/28/21, treated with REGEN-COV (casirivimab and imdevimab). Before he received a vaccine booster, he had C (more content not included)... [facility] 06-08-2023 Miscellaneous Notes Summary: FOLLOW UP SPOKE WITH PT AND SCHEDULED HIS FOLLOW UP TO SEE LISA IN SEPTEMBER. PT IS AWARE TO HAVE HIS LABS DRAWN EVERY 2 MONTHS. PT STATED HE WILL GO OFF SITE IN [place] TO HAVE LABS DRAWN documented in this encounter [facility] 06-01-2023 Note HNO ID: [id number] Author: Tierney Palmer PA-C Service: ? Author Type: Physician Rn Otolaryngology Type: Progress Notes Filed: 06/01/2023 11:38 AM Note Text: Diagnosis: Marginal zone lymphoma of spleen (disorder) and Pancytopenia ( Date of Dx:08/08/2020 ) CLINICAL SUMMARY In ~ 2007, he developed severe thrombocytopenia reportedly discovered by routine lab testing performed when he had a physical for work. His platelets were reportedly 1, and he was hospitalized. Bone marrow exam was performed. He saw Dr. Carolann Miller at [facility], and was treated with IV infusions q wk x 4, reportedly for extended periods of time. His CBC was eventually checked annually thereafter. He does not recall the name of the drug he was given. He does not recall Rituxan, but he does recall the diagnosis of ITP. In 12/2019, he developed shingles involving the left side of his lower torso. The pain was 6-8/10 severity, and by 08/2020, it was 2-3/10. He describes it as dull aching pain. He was given medicine for it and had vomiting for 3 days. It was a steroid medicine. . In 07/2020, he developed pain involving the left lower rib cage, and he was given Daypro 600 mg for costochondritis, which he quit after 3 days due to upset stomach. He took ES Tylenol instead. No labs were done at that time. He had nightsweats for ~ 1 month in late 2019, especially when first going to sleep. At times, they were drenching. Labs at [facility] on 08/08/20: CMP revealed BUN 21, creatinine 1.31, alkaline phosphatase 120, and no other remarkable abnormality. Cholesterol 102, triglycerides 65, HDL cholesterol 23 on 08/08/20. CBC revealed WBC 2.6, hemoglobin 9.7, MCV 80.1, platelets 81. ANC was 1.4. ALC was 0.9. Platelets were moderately decreased. No hx of SLE or RA. No hx of transfusion. No hx of liver problems, hepatitis or jaundice. No hx of hepatitis B or C. CT chest 09/22/20 revealed no acute abnormalities or suspicious lesions identified in the thorax. CT abd/pelvis 09/22/20 revealed significant splenomegaly. The spleen measured at least 32 cm longitudinal x 27 cm oblique transverse diameter. There was mass effect on the stomach. The left kidney and small bowel were displaced medially. The spleen was homogeneous. Bone marrow asp/bx 09/27/20 revealed ~80% cellularity with maturing trilineage hematopoiesis and mild megakaryocytic hyperplasia. There was involvement by a monoclonal kappa B-cell lymphoma, accounting for ~20% of marrow cellularity. Flow cytometry revealed a nonspecific phenotype (CD5-, CD10-, CD103-) c/w marginal zone lymphoma or less likely, lymphoplasmacytic lymphoma. However MYD88 mutation detection by PCR was negative for the MYD88 L265P mutation. Plasma cells (<5%) were polytypic. Karyotypic analysis was normal. CT chest 01/20/21 revealed splenomegaly which was present previously. No lymphadenopathy or suspicious lesions identified within the thorax. CT abd/pelvis 01/20/21 revealed severe splenomegaly, present previously, at least 27 cm oblique transverse and 31 cm longitudinal diameter. There was associated mass effect on adjacent stomach and bowel. The left kidney was displaced to the midline. There was tortuosity and dilatation of the splenic vein as previously noted. There was good flow within the splenic and portal veins. No KERI. Hep B surface antigen and core antibody, and Hep C antibody were non-reactive on 10/14/20. SPEP was without M-spike on 10/14/20. IgG 1966 (H), IgA 88 (L), IgM 16 (L) on 10/14/20. LDH 253 on 09/16/20, 251 on 09/27/20, 213 on 01/08/21. CT A/P 06/16/21 revealed improved splenomegaly. The spleen measured 19.5 cm in length craniocaudally, 31 cm previously. No splenic mass. CHIEF COMPLAINT lymphoma INTERVAL HISTORY He started Rituxan 01/27/21, and completed 8 weekly infusions on 03/19/21. No problems with appetite or weight loss. His weight is stable. He denies drenching night sweats, but has had occasional mild nightsweats. No abdominal pain. Post herpetic neuralgia has not recurred. No pruritus. No bleeding or bruising. No infections. 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 He is following with Ortho in [place] and received a cortisone injection and gel injections with temporary relief. He is considering knee replacement next Spring. He is considering THC gummies. He denies palpable KERI. He has had less ear congestion lately, and has not had to have myringotomy tube placement. His auditory symptoms fluctuate week to week. He was considering a cochlear implant at [facility], but he has been reluctant to have the surgery performed. PAST MEDICAL HISTORY HBP Menieres disease dx 2 years ago. Hearing loss began in left ear years ago, right ear 3-4 years ago. Hearing aide > 1 yr ago. back pain x years Shingles COVID19 infection 05/28/21, treated with REGEN-COV (casirivimab and imdevimab). Before he received a vaccine booster, he h (more content not included)... [facility] 02-19-2023 Miscellaneous Notes Pharmacy [employer] message requesting the following refill. Requested Prescriptions Pending Prescriptions Disp Refills hydroCHLOROthiazide 12.5 mg tablet [Pharmacy Med Name: HYDROCHLOROTHIAZIDE 12.5 MG TB] 90 tablet 3 Sig: TAKE 1 TABLET BY MOUTH EVERY DAY Patient last appointment: 11/09/2022 Patient Phone numbers: [phone] (home) Request is for script(s) to be escript to [facility] pharmacy. Bee Arriaga LPN documented in this encounter [facility] 01-28-2023 Note HNO ID: [id number] Author: Tierney Palmer PA-C Service: ? Author Type: Physician Rn Otolaryngology Type: Progress Notes Filed: 01/28/2023 3:18 PM Note Text: Diagnosis: Marginal zone lymphoma of spleen (disorder) and Pancytopenia ( Date of Dx:08/08/2020 ) CLINICAL SUMMARY In ~ 2007, he developed severe thrombocytopenia reportedly discovered by routine lab testing performed when he had a physical for work. His platelets were reportedly 1, and he was hospitalized. Bone marrow exam was performed. He saw Dr. Carolann Miller at [facility], and was treated with IV infusions q wk x 4, reportedly for extended periods of time. His CBC was eventually checked annually thereafter. He does not recall the name of the drug he was given. He does not recall Rituxan, but he does recall the diagnosis of ITP. In 12/2019, he developed shingles involving the left side of his lower torso. The pain was 6-8/10 severity, and by 08/2020, it was 2-3/10. He describes it as dull aching pain. He was given medicine for it and had vomiting for 3 days. It was a steroid medicine. . In 07/2020, he developed pain involving the left lower rib cage, and he was given Daypro 600 mg for costochondritis, which he quit after 3 days due to upset stomach. He took ES Tylenol instead. No labs were done at that time. He had nightsweats for ~ 1 month in late 2019, especially when first going to sleep. At times, they were drenching. Labs at [facility] on 08/08/20: CMP revealed BUN 21, creatinine 1.31, alkaline phosphatase 120, and no other remarkable abnormality. Cholesterol 102, triglycerides 65, HDL cholesterol 23 on 08/08/20. CBC revealed WBC 2.6, hemoglobin 9.7, MCV 80.1, platelets 81. ANC was 1.4. ALC was 0.9. Platelets were moderately decreased. No hx of SLE or RA. No hx of transfusion. No hx of liver problems, hepatitis or jaundice. No hx of hepatitis B or C. CT chest 09/22/20 revealed no acute abnormalities or suspicious lesions identified in the thorax. CT abd/pelvis 09/22/20 revealed significant splenomegaly. The spleen measured at least 32 cm longitudinal x 27 cm oblique transverse diameter. There was mass effect on the stomach. The left kidney and small bowel were displaced medially. The spleen was homogeneous. Bone marrow asp/bx 09/27/20 revealed ~80% cellularity with maturing trilineage hematopoiesis and mild megakaryocytic hyperplasia. There was involvement by a monoclonal kappa B-cell lymphoma, accounting for ~20% of marrow cellularity. Flow cytometry revealed a nonspecific phenotype (CD5-, CD10-, CD103-) c/w marginal zone lymphoma or less likely, lymphoplasmacytic lymphoma. However MYD88 mutation detection by PCR was negative for the MYD88 L265P mutation. Plasma cells (<5%) were polytypic. Karyotypic analysis was normal. CT chest 01/20/21 revealed splenomegaly which was present previously. No lymphadenopathy or suspicious lesions identified within the thorax. CT abd/pelvis 01/20/21 revealed severe splenomegaly, present previously, at least 27 cm oblique transverse and 31 cm longitudinal diameter. There was associated mass effect on adjacent stomach and bowel. The left kidney was displaced to the midline. There was tortuosity and dilatation of the splenic vein as previously noted. There was good flow within the splenic and portal veins. No KERI. Hep B surface antigen and core antibody, and Hep C antibody were non-reactive on 10/14/20. SPEP was without M-spike on 10/14/20. IgG 1966 (H), IgA 88 (L), IgM 16 (L) on 10/14/20. LDH 253 on 09/16/20, 251 on 09/27/20, 213 on 01/08/21. CT A/P 06/16/21 revealed improved splenomegaly. The spleen measured 19.5 cm in length craniocaudally, 31 cm previously. No splenic mass. CHIEF COMPLAINT lymphoma INTERVAL HISTORY He started Rituxan 01/27/21, and completed 8 weekly infusions on 03/19/21. No problems with appetite or weight loss. His weight is stable. He denies drenching night sweats, but has had occasional mild nightsweats. No abdominal pain. Post herpetic neuralgia has not recurred. No pruritus. No bleeding or bruising. No infections. 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 He is following with Ortho in [place] and received a cortisone injection with very temporary relief. He denies palpable KERI. He has had less ear congestion lately, and has not had to have myringotomy tube placement. His auditory symptoms fluctuate week to week. He was considering a cochlear implant at [facility], but he has been reluctant to have the surgery performed. PAST MEDICAL HISTORY HBP Menieres disease dx 2 years ago. Hearing loss began in left ear years ago, right ear 3-4 years ago. Hearing aide > 1 yr ago. back pain x years Shingles COVID19 infection 05/28/21, treated with REGEN-COV (casirivimab and imdevimab). Before he received a vaccine booster, he had COVID19 again Spring 2021. Gout, flared in 07/2021. PAST SURGICAL HISTORY Right rotato (more content not included)... [facility] 12-18-2022 Miscellaneous Notes Pharmacy [employer] message requesting the following refill. Requested Prescriptions Pending Prescriptions Disp Refills allopurinol (ZYLOPRIM) 100 mg tablet [Pharmacy Med Name: ALLOPURINOL 100 MG TABLET] 90 tablet 3 Sig: TAKE 1 TABLET BY MOUTH EVERY DAY amLODIPine (NORVASC) 5 mg tablet [Pharmacy Med Name: AMLODIPINE BESYLATE 5 MG TAB] 90 tablet 3 Sig: TAKE 1 TABLET BY MOUTH EVERY DAY DIRECTED Patient last appointment: 11/09/2022 Patient Phone numbers: [phone] (home) Request is for script(s) to be escript to [facility] pharmacy. Bee Arriaga LPN documented in this encounter [facility] 11-09-2022 Note HNO ID: [id number] Author: José Antonio Meyer MD Service: ? Author Type: Physician Type: Progress Notes Filed: 11/09/2022 11:54 AM Note Text: This note was created using [employer]. Subjective Alessio Gold is a 57 year old male. Temo presents today with history of skin lesions to his back needing evaluation. Review of Systems Constitutional: Negative. HENT: Negative. Eyes: Negative. Respiratory: Negative. Cardiovascular: Negative. Gastrointestinal: Negative. Endocrine: Negative. Genitourinary: Negative. Musculoskeletal: Negative. Skin: Negative. Allergic/Immunologic: Negative. Neurological: Negative. Hematological: Negative. Psychiatric/Behavioral: Negative. Objective BP 142/80 (BP Site: Left Arm, BP Position: Sitting, BP Cuff Size: Large Adult) Pulse 89 Temp 36.4 ?C (97.5 ?F) (Temporal) Resp 16 Ht 179.1 cm (5' 10.5 ) Wt 124.5 kg (274 lb 8 oz) SpO2 98% BMI 38.83 kg/m? Physical Exam Skin: Findings: Lesion present. Comments: Patient with multiple seborrheic keratosis to the back of moderate size. Also 1 large irritated skin tag. Assessment and Plan Alessio was seen today for derm problem. Diagnoses and all orders for this visit: Skin tag Skin cleansed with alcohol. 1% lidocaine used to achieve local anesthesia. Forceps and scissors utilized to excise large skin tag to his mid back. There was minimal bleeding controlled with compression and gauze. Patient tolerated procedure well. There were no complications. [facility] 11-09-2022 Note HNO ID: [id number] Author: Quintin Fatima LPN Service: ? Author Type: LICENSED NURSE Type: Progress Notes Filed: 11/09/2022 11:54 AM Note Text: Patient here today for office visit. Patient is concerned with a mole and skin tag on his back. Patient denies any pain or irritation. Patient states no refills needed today. Quintin Fatima LPN November 09, 2022 11:22 AM [facility] 09-22-2022 Miscellaneous Notes Pharmacy MyChart message requesting the following refill. Requested Prescriptions Pending Prescriptions Disp Refills KLOR-CON M20 20 mEq tablet [Pharmacy Med Name: KLOR-CON M20 TABLET] 90 tablet 3 Sig: TAKE 1 TABLET BY MOUTH EVERY DAY Patient last appointment: 06/22/2022 Patient Phone numbers: [phone] (home) [phone] (work) Request is for script(s) to be escript to [facility] pharmacy. Bee Arriaga LPN documented in this encounter [facility] 07-01-2022 History of Present illness Narrative Diagnosis: Marginal zone lymphoma of spleen (disorder) and Pancytopenia ( Date of Dx:08/08/2020 ) CLINICAL SUMMARY In ~ 2007, he developed severe thrombocytopenia reportedly discovered by routine lab testing performed when he had a physical for work. His platelets were reportedly 1, and he was hospitalized. Bone marrow exam was performed. He saw Dr. Carolann Miller at [facility], and was treated with IV infusions q wk x 4, reportedly for extended periods of time. His CBC was eventually checked annually thereafter. He does not recall the name of the drug he was given. He does not recall Rituxan, but he does recall the diagnosis of ITP. In 12/2019, he developed shingles involving the left side of his lower torso. The pain was 6-8/10 severity, and by 08/2020, it was 2-3/10. He describes it as dull aching pain. He was given medicine for it and had vomiting for 3 days. It was a steroid medicine. . In 07/2020, he developed pain involving the left lower rib cage, and he was given Daypro 600 mg for costochondritis, which he quit after 3 days due to upset stomach. He took ES Tylenol instead. No labs were done at that time. He had nightsweats for ~ 1 month in late 2019, especially when first going to sleep. At times, they were drenching. Labs at [facility] on 08/08/20: CMP revealed BUN 21, creatinine 1.31, alkaline phosphatase 120, and no other remarkable abnormality. Cholesterol 102, triglycerides 65, HDL cholesterol 23 on 08/08/20. CBC revealed WBC 2.6, hemoglobin 9.7, MCV 80.1, platelets 81. ANC was 1.4. ALC was 0.9. Platelets were moderately decreased. No hx of SLE or RA. No hx of transfusion. No hx of liver problems, hepatitis or jaundice. No hx of hepatitis B or C. CT chest 09/22/20 revealed no acute abnormalities or suspicious lesions identified in the thorax. CT abd/pelvis 09/22/20 revealed significant splenomegaly. The spleen measured at least 32 cm longitudinal x 27 cm oblique transverse diameter. There was mass effect on the stomach. The left kidney and small bowel were displaced medially. The spleen was homogeneous. Bone marrow asp/bx 09/27/20 revealed ~80% cellularity with maturing trilineage hematopoiesis and mild megakaryocytic hyperplasia. There was involvement by a monoclonal kappa B-cell lymphoma, accounting for ~20% of marrow cellularity. Flow cytometry revealed a nonspecific phenotype (CD5-, CD10-, CD103-) c/w marginal zone lymphoma or less likely, lymphoplasmacytic lymphoma. However MYD88 mutation detection by PCR was negative for the MYD88 L265P mutation. Plasma cells (<5%) were polytypic. Karyotypic analysis was normal. CT chest 01/20/21 revealed splenomegaly which was present previously. No lymphadenopathy or suspicious lesions identified within the thorax. CT abd/pelvis 01/20/21 revealed severe splenomegaly, present previously, at least 27 cm oblique transverse and 31 cm longitudinal diameter. There was associated mass effect on adjacent stomach and bowel. The left kidney was displaced to the midline. There was tortuosity and dilatation of the splenic vein as previously noted. There was good flow within the splenic and portal veins. No KERI. Hep B surface antigen and core antibody, and Hep C antibody were non-reactive on 10/14/20. SPEP was without M-spike on 10/14/20. IgG 1966 (H), IgA 88 (L), IgM 16 (L) on 10/14/20. LDH 253 on 09/16/20, 251 on 09/27/20, 213 on 01/08/21. CT A/P 06/16/21 revealed improved splenomegaly. The spleen measured 19.5 cm in length craniocaudally, 31 cm previously. No splenic mass. CHIEF COMPLAINT lymphoma INTERVAL HISTORY He started Rituxan 01/27/21, and completed 8 weekly infusions on 03/19/21. No problems with appetite or weight loss. His weight is stable. He denies drenching night sweats, but has had occasional mild nightsweats. No abdominal pain. Post herpetic neuralgia has not recurred. No pruritus. No bleeding or bruising. No infections. He had a ganglion cyst drained from his right foot 3 weeks ago. He was told he had arthritis in his left hip. He will be seeing Ortho next month for imaging. He denies palpable KERI. He has had less ear congestion lately, and has not had to have myringotomy tube placement. His auditory symptoms fluctuate week to week. He was considering a cochlear implant at [facility], but he has been reluctant to have the surgery performed. PAST MEDICAL HISTORY HBP Menieres disease dx 2 years ago. Hearing loss began in left ear years ago, right ear 3-4 years ago. Hearing aide > 1 yr ago. back pain x years Shingles COVID19 infection 05/28/21, treated with REGEN-COV (casirivimab and imdevimab). Before he received a vaccine booster, he had COVID19 again Spring 2021. Gout, flared in 07/2021. PAST SURGICAL HISTORY Right rotator cuff repair Bilateral Lasik surgeries. Current Outpatient Medications Medication Sig Dispense Refill hydroCHLOROthiazide (HYDRODIURIL, ESIDRIX) 12.5 mg tablet Take 12.5 mg by mouth once daily. amLODIPine (NORVASC) 5 mg tablet Take 1 tablet by mouth once daily. Once a day as directed allopurinol (ZYLOPRIM) 100 mg tablet Take 1 tablet by mouth once daily. Once daily as directed nabumetone (RELAFEN) 750 mg tablet Take 1 tablet by mouth twice daily as needed. As needed for pain potassium chloride ER (K-DUR, KLOR-CON) 20 mEq tablet Take 1 tablet by mouth once daily. (Patient not taking: No sig reported) metoprolol succinate ER (TOPROL XL) 50 mg 24 hr tablet Take 50 mg by mouth once daily. KLOR-CON M20 20 mEq tablet Take 20 mEq by mouth once daily. (Patient not taking: No sig reported) aliskiren hemifumarate(TEKTURNA 300 MG TAB) Take one(1) tablet daily. (Patient not taking: ) 0 No current facility-administered medications for this visit. ALLERGIES No Known Allergies SOCIAL HISTORY Lives With Whom: spouse Occupation(s): work at [employer] Alcohol Consumption: 1 or 2, combination of beer/liquor a week Illicit Drug Use: none FAMILY HISTORY Father: Alive and Well Mother: Alive and Well Sister 1: dx'd with COVID19 as of 2 days ago. Father recovered from COVID19, mother succumbed to COVID19. No one else with malignancy. HEALTH MAINTENANCE Tobacco history: never Flu Vaccine: Pneumonia vaccine status: never Shingles vaccine status: never Colon cancer screening:. Date of last colonoscopy 2016 Last PSA (men): unsure Last DEXA scan: never Depression Status Was screened; Outcome positive: No; Screening Date: 06/25/2021; Screening Tool: Patient Health Questionnaire (PHQ9) REVIEW OF SYSTEMS Systems review detailed below is negative unless otherwise indicated. Constitutional: fever, sweats, chills, night sweats, weight loss, weight gain, fatigue Eyes: diplopia, loss of vision, scotomata, blurred vision, corrective lenses, eye pain, conjunctivitis, excessive lacrimation ENT/Mouth: hearing loss with use of hearing aids, tinnitus, sinus pain or congestion, postnasal drip, epistaxis, gingival bleeding, mouth pain or sores, sore throat, hoarseness, dysphagia, oral dryness Cardiovascular: chest pain, palpitations, syncope, upper extremity edema, lower extremity edema, calf discomfort Respiratory: cough, shortness of breath, dyspnea with exertion, wheezing, hemoptysis, pleurisy Gastrointestinal: heartburn, nausea, vomiting, abdominal pain, abdominal cramping, jaundice, constipation, diarrhea, hematemesis, hematochezia, melena, hemmorrhoids, anorexia Male Genitourinary: Dysuria, flank pain, foul smelling urine, urinary urgency, urinary hesitancy, urinary frequency, nocturia, hematuria, urinary incontinence, penile discharge, penile pain, straining, testicular/scrotal pain Musculoskeletal: muscle pain, joint pain or swelling, bone pain, back pain, muscle weakness, spine tenderness. Minor foot swelling due to gout. Skin: rash, nodules, lesions, pruritus, alopecia, dry skin, change in nail appearance, easy bruising, petechiae, radiation therapy effect Neurologic: headache, confusion, memory loss, speech changes, tremor, seizures, syncope, dizziness/lightheadedness, weakness, peripheral numbness or tingling, abnormal gait Psychiatric: depression, anxiety Endocrine: polyuria, polydipsia, hot flashes, cold or heat intolerance Hematologic: epistaxis, gingival bleeding, bruising, petechiae Lymphatic: lymphadenopathy, lymphedema Allergy/Immunologic: eczema, frequent mucous membrane infections, frequent respiratory infections, recurrent urticaria, frequent skin infections VITAL SIGNS BP 126/84 Pulse 74 Resp 16 Wt 124.3 kg (274 lb) BMI 38.76 kg/(m^2) PHYSICAL EXAM Patient appears comfortable, well-developed, well-nourished, and in no acute distress. Skin is without rash on face. No purpura. Residual hyperpigmentation corresponding to dermatome of shingles rash left torso not examined today. HEENT: Normocephalic, atraumatic. Anicteric sclera, conjunctiva clear. PER, EOMF. External ears WNL. Mouth: Tongue without ulcers or thrush. Neck is supple. Lungs with unlabored breathing and no accessory muscle use. Abdomen: nondistended. Splenomegaly not examined. Not palpable when last examined. Spleen was previously ~ 12 cm below LCM. Extremities reveal no pedal edema. No clubbing or cyanosis. Musculoskeletal: No apparent inflammatory arthropathy. Neurologic: No focal motor deficits and no abnormal mental status. Psychiatric: Oriented to person, time and place. Mood and affect appropriate. Appropriate judgment and insight. Memory intact. LABORATORY CBC Latest Ref Rng & Units 03/07/2012 06/09/2022 06/18/2022 WBC 3.70 - 11.00 k/uL - 6.24 6.19 RBC 4.20 - 6.00 m/uL - 5.06 5.33 HEMOGLOBIN 13.0 - 17.0 g/dL - 14.4 14.7 HEMOGLOBIN, DIAMANTE 13.0 - 17.0 g/dL 14.8 - - HEMATOCRIT 39.0 - 51.0 % - 42.4 44.5 MCV 80.0 - 100.0 fL - 83.8 83.5 MCV, DIAMANTE 80.0 - 100.0 fL 85.3 - - MCH 26.0 - 34.0 pg - 28.5 27.6 MCH, DIAMANTE 26.0 - 34.0 pg 28.7 - - MCHC 30.5 - 36.0 g/dL - 34.0 33.0 MCHC, DIAMANTE 30.5 - 36.0 g/dL 33.6 - - RDW, DIAMANTE 11.5 - 15.0 % 13.5 - - RDW-CV 11.5 - 15.0 % - 14.4 14.4 PLATELETS 150 - 400 k/uL - 172 151 MPV 9.0 - 12.7 fL - 10.4 10.6 MPV, DIAMANTE 9.0 - 12.7 fL 10.4 - - NEUT%, DIAMANTE 42 - 75 % 53 - - MONO%, DIAMANTE 2 - 9 % 9 - - EOS%, DIAMANTE 0 - 6 % 8(H) - - BASO% % - 0.6 0.5 BASO%, DIAMANTE 0 - 2 % 1 - - ABS NEUT (ANC) 1.45 - 7.50 k/uL - 4.24 4.32 ABS NEUT, DIAMANTE 2 - 8 k/uL 3.13 - - ABS LYMP, DIAMANTE 1 - 6 k/uL 1.62 - - ABS LYMPH 1.00 - 4.00 k/uL - 0.98(L) 1.02 ABS MONO <0.87 k/uL - 0.52 0.47 ABS MONO, DIAMANTE 0 - 1 k/uL 0.52 - - ABS EOS, DIAMANTE 0 - 1 k/uL 0.46 - - ABS EOSIN <0.46 k/uL - 0.39 0.30 ABS BASO <0.11 k/uL - 0.04 0.03 ABS BASO, DIAMANTE 0 - 1 k/uL 0.06 - - NRBC /100 WBC - 0.0 0.0 164 CMP Latest Ref Rng & Units 03/27/2021 06/25/2021 06/18/2022 SODIUM 136 - 144 mmol/L 137 139 135(L) SODIUM, DIAMANTE 136 - 145 mmol/L - - - SODIUM, DIAMANTE 136 - 145 mmol/L - - - POTASSIUM 3.7 - 5.1 mmol/L 3.9 3.7 3.9 POTASSIUM, DIAMANTE 3.5 - 5.1 mmol/L - - - CHLORIDE 97 - 105 mmol/L 102 102 101 CHLORIDE, DIAMANTE 98 - 107 mmol/L - - - CO2 22 - 30 mmol/L 31.0 28.0 22 CO2, DIAMANTE 21.0 - 32.0 mmol/L - - - GLUCOSE 74 - 99 mg/dL 99 108(H) 119(H) GLUCOSE, DIAMANTE 70 - 99 mg/dL - - - BUN 9 - 24 mg/dL 22 19 18 BUN, DIAMANTE 7 - 18 mg/dL - - - CREATININE 0.73 - 1.22 mg/dL 1.13 1.22 1.22 CREATININE, DIAMANTE 0.8 - 1.3 mg/dL - - - EGFR >=60 mL/min/1.73m - - 70 EGFR- - Greater than 60 Greater than 60 - PROTEIN, TOTAL 6.3 - 8.0 g/dL 7.7 7.7 7.4 TOTAL PROTEIN, DIAMANTE 6.4 - 8.2 g/dL - - - ALBUMIN 3.9 - 4.9 g/dL 4.3 4.5 4.6 ALBUMIN, DIAMANTE 3.4 - 5.0 g/dL - - - CALCIUM, DIAMANTE 8.5 - 10.1 mg/dL - - - CALCIUM, TOTAL 8.5 - 10.2 mg/dL 9.8 9.5 9.1 BILIRUBIN, TOTAL 0.2 - 1.3 mg/dL 1.30(H) 0.90 0.7 AST 14 - 40 U/L 17 27 20 AST, DIAMANTE 15 - 37 U/L - - - ALT 10 - 54 U/L 21 32 21 ALT, DIAMANTE 30 - 65 U/L - - - ALKALINE PHOSPHATASE 38 - 113 U/L 115 123(H) 103 IMPRESSION 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 Asymptomatic mild pancytopenia resolved Hx of shingles 12/2019, possibly with post herpetic neuralgia. Hx of ITP Nightsweats probably r/t SMZL, much improved. Hypertension. Meniere's disease Hx of borderline range B12 level, but MMA normal. COVID19 infection 05/28/21 and again Spring 2021. PLAN He completed 8 weekly Rituxan infusions, and symptoms and splenomegaly much improved/nearly resolved. We will continue to monitor his labs. We have decided against maintenance Rituxan in the setting of the COVID19 pandemic. He requests lab testing q 6 weeks. All of his questions were answered to his satisfaction. Orders Placed This Encounter CMP Standing Status: Future Standing Expiration Date: 08/31/2022 LD LACTATE DEHYDRO Standing Status: Future Standing Expiration Date: 08/31/2022 Tierney Palmer PA-C Time: 2:50-3:20. Copies José Antonio Meyer MD (Referring) documented in this encounter [facility] 06-22-2022 Miscellaneous Notes Patient notified. Isabelle Wallace LPN June 22, 2022 12:31 PM ----- Message from José Antonio Meyer MD sent at 06/21/2022 8:58 PM EDT ----- Sugar elevated. Check a1c documented in this encounter [facility] 06-17-2022 Miscellaneous Notes Notified of X Ray results. No questions, comments, or concerns Isabelle Wallace LPN June 17, 2022 11:58 AM Message left for patient to call office in regards to X ray Isabelle Wallace LPN June 15, 2022 4:16 PM ----- Message from José Antonio Meyer MD sent at 06/15/2022 3:22 PM EDT ----- Severe djd l4-5. Mild deg changes to hip and knee. documented in this encounter [facility] 06-15-2022 History of Present illness Narrative This note was created using Jade Magnet. Subjective Alessio Gold is a 57 year old male. Temo presents today for left knee left hip left thigh and left lower back pain. Pain is migrating. Increases with activity. Not improved with rest. Review of Systems Constitutional: Negative. HENT: Negative. Eyes: Negative. Respiratory: Negative. Cardiovascular: Negative. Gastrointestinal: Negative. Endocrine: Negative. Genitourinary: Negative. Musculoskeletal: Negative. Skin: Negative. Allergic/Immunologic: Negative. Neurological: Negative. Hematological: Negative. Psychiatric/Behavioral: Negative. Objective BP 138/88 (BP Site: Right Arm, BP Cuff Size: Large Adult) Pulse 92 Temp 36.4 C (97.5 F) (Temporal) Resp 14 Wt 125 kg (275 lb 9.6 oz) SpO2 96% Physical Exam Vitals reviewed. Constitutional: Appearance: Normal appearance. HENT: Head: Normocephalic and atraumatic. Nose: Nose normal. Eyes: Extraocular Movements: Extraocular movements intact. Pupils: Pupils are equal, round, and reactive to light. Cardiovascular: Rate and Rhythm: Normal rate and regular rhythm. Pulmonary: Effort: Pulmonary effort is normal. Breath sounds: Normal breath sounds. Abdominal: General: Bowel sounds are normal. Palpations: Abdomen is soft. Musculoskeletal: General: Normal range of motion. Cervical back: Normal range of motion and neck supple. Skin: General: Skin is warm and dry. Capillary Refill: Capillary refill takes less than 2 seconds. Neurological: General: No focal deficit present. Mental Status: He is alert and oriented to person, place, and time. Mental status is at baseline. Psychiatric: Mood and Affect: Mood normal. Behavior: Behavior normal. Assessment and Plan Alessio was seen today for acute visit. Diagnoses and all orders for this visit: Polyarthralgia - CRYSTAL BLOOD; Future - RHEUMATOID FACTOR BL; Future - SED RATE WESTERGREN; Future - CONSULT TO ORTHOPAEDICS Acute left-sided low back pain without sciatica - XR LUMBAR PARS DEFECT 4V AP/LAT/BOTH OBL; Future - CONSULT TO ORTHOPAEDICS Left hip pain - XR HIP GENERAL 3V PELV/AP/LAT LEFT; Future - CONSULT TO ORTHOPAEDICS Chronic pain of left knee - XR KNEE INJURY 4V AP/LAT/OBLS LEFT; Future - CONSULT TO ORTHOPAEDICS Thrombocytopenia, unspecified (HCC) - CBC + DIFF; Future Well adult health check - COMP METABOLIC PANEL; Future Screening PSA (prostate specific antigen) - PSA/PROSTSPECAG SCRN; Future Screening for lipid disorders - LIPID PANEL BASIC; Future documented in this encounter [facility] 06-15-2022 Nurse Note Pt has complaints of 3/10 in lower part of knee. Pt states the pain can vary from 2-8 and moves to thigh, hip,knee sometimes dubose as well since February 2022. Pt denies injury documented in this encounter [facility] 03-31-2022 History of Present illness Narrative Diagnosis: Marginal zone lymphoma of spleen (disorder) and Pancytopenia ( Date of Dx:08/08/2020 ) TELEHEALTH VISIT Method of communication: Zoom Patient consent for use of technology completed: yes Location of provider for visit: office Location of patient for visit: Office at work. Other people with patient providing info or support: none Time visit started: 1420 Time visit completed: 1453 Orders [id number] Record to be forwarded to PCP: yes CLINICAL SUMMARY In ~ 2007, he developed severe thrombocytopenia reportedly discovered by routine lab testing performed when he had a physical for work. His platelets were reportedly 1, and he was hospitalized. Bone marrow exam was performed. He saw Dr. Carolann Miller at [facility], and was treated with IV infusions q wk x 4, reportedly for extended periods of time. His CBC was eventually checked annually thereafter. He does not recall the name of the drug he was given. He does not recall Rituxan, but he does recall the diagnosis of ITP. In 12/2019, he developed shingles involving the left side of his lower torso. The pain was 6-8/10 severity, and by 08/2020, it was 2-3/10. He describes it as dull aching pain. He was given medicine for it and had vomiting for 3 days. It was a steroid medicine. . In 07/2020, he developed pain involving the left lower rib cage, and he was given Daypro 600 mg for costochondritis, which he quit after 3 days due to upset stomach. He took ES Tylenol instead. No labs were done at that time. He had nightsweats for ~ 1 month in late 2019, especially when first going to sleep. At times, they were drenching. Labs at [facility] on 08/08/20: CMP revealed BUN 21, creatinine 1.31, alkaline phosphatase 120, and no other remarkable abnormality. Cholesterol 102, triglycerides 65, HDL cholesterol 23 on 08/08/20. CBC revealed WBC 2.6, hemoglobin 9.7, MCV 80.1, platelets 81. ANC was 1.4. ALC was 0.9. Platelets were moderately decreased. No hx of SLE or RA. No hx of transfusion. No hx of liver problems, hepatitis or jaundice. No hx of hepatitis B or C. CT chest 09/22/20 revealed no acute abnormalities or suspicious lesions identified in the thorax. CT abd/pelvis 09/22/20 revealed significant splenomegaly. The spleen measured at least 32 cm longitudinal x 27 cm oblique transverse diameter. There was mass effect on the stomach. The left kidney and small bowel were displaced medially. The spleen was homogeneous. Bone marrow asp/bx 09/27/20 revealed ~80% cellularity with maturing trilineage hematopoiesis and mild megakaryocytic hyperplasia. There was involvement by a monoclonal kappa B-cell lymphoma, accounting for ~20% of marrow cellularity. Flow cytometry revealed a nonspecific phenotype (CD5-, CD10-, CD103-) c/w marginal zone lymphoma or less likely, lymphoplasmacytic lymphoma. However MYD88 mutation detection by PCR was negative for the MYD88 L265P mutation. Plasma cells (<5%) were polytypic. Karyotypic analysis was normal. CT chest 01/20/21 revealed splenomegaly which was present previously. No lymphadenopathy or suspicious lesions identified within the thorax. CT abd/pelvis 01/20/21 revealed severe splenomegaly, present previously, at least 27 cm oblique transverse and 31 cm longitudinal diameter. There was associated mass effect on adjacent stomach and bowel. The left kidney was displaced to the midline. There was tortuosity and dilatation of the splenic vein as previously noted. There was good flow within the splenic and portal veins. No KERI. Hep B surface antigen and core antibody, and Hep C antibody were non-reactive on 10/14/20. SPEP was without M-spike on 10/14/20. IgG 1966 (H), IgA 88 (L), IgM 16 (L) on 10/14/20. LDH 253 on 09/16/20, 251 on 09/27/20, 213 on 01/08/21. CT A/P 06/16/21 revealed improved splenomegaly. The spleen measured 19.5 cm in length craniocaudally, 31 cm previously. No splenic mass. CHIEF COMPLAINT lymphoma INTERVAL HISTORY He started Rituxan 01/27/21, and completed 8 weekly infusions on 03/19/21. He took COVID19 vaccine x 2. Just before getting booster, he got COVID19 infection again, but without symptoms. He took a test to confirm the dx only because he was exposed to coworkers who were dx'd with symptoms. No problems with appetite or weight loss. His weight is up further. He denies drenching night sweats, but has had occasional mild nightsweats. No abdominal pain. Post herpetic neuralgia has not recurred. No pruritus. No bleeding or bruising. No infections. He denies palpable KERI. He has had less ear congestion lately, and has not had to have myringotomy tube placement. His auditory symptoms fluctuate week to week. He was considering a cochlear implant at [facility], but he has been reluctant to have the surgery performed. PAST MEDICAL HISTORY 1. HBP 2. Menieres disease dx 2 years ago. 3. Hearing loss began in left ear years ago, right ear 3-4 years ago. Hearing aide > 1 yr ago. 4. back pain x years 5. Shingles 6. COVID19 infection 05/28/21, treated with REGEN-COV (casirivimab and imdevimab). Before he received a vaccine booster, he had COVID19 again Spring 2021. 7. Gout, flared in 07/2021. PAST SURGICAL HISTORY 1. Right rotator cuff repair 2. Bilateral Lasik surgeries. MEDICATION he reports, name unclear: AML gout medicine. Current Outpatient Medications Medication Instructions aliskiren hemifumarate(TEKTURNA 300 MG TAB) Take one(1) tablet daily. allopurinol (ZYLOPRIM) 100 mg tablet 1 tablet, ORAL, DAILY, Once daily as directed amLODIPine (NORVASC) 5 mg tablet 1 tablet, ORAL, DAILY, Once a day as directed KLOR-CON M20 20 mEq tablet 20 mEq, ORAL, DAILY metoprolol succinate ER (TOPROL XL) 50 mg, ORAL, DAILY nabumetone (RELAFEN) 750 mg tablet 1 tablet, ORAL, 2 TIMES DAILY NEEDED, As needed for pain potassium chloride ER (K-DUR, KLOR-CON) 20 mEq tablet 1 tablet, ORAL, DAILY triamterene-hydroCHLOROthiazide (MAXZIDE-25) 37.5-25 mg per tablet 1 tablet, ORAL, DAILY triamterene-hydroCHLOROthiazide 37.5-25 mg per capsule 1 capsule, ORAL, DAILY ALLERGIES No Known Allergies SOCIAL HISTORY Lives With Whom: spouse Occupation(s): work at [employer] Alcohol Consumption: 1 or 2, combination of beer/liquor a week Illicit Drug Use: none FAMILY HISTORY Father: Alive and Well Mother: Alive and Well Sister 1: dx'd with COVID19 as of 2 days ago. Father recovered from COVID19, mother succumbed to COVID19. No one else with malignancy. HEALTH MAINTENANCE Tobacco history: never Flu Vaccine: Pneumonia vaccine status: never Shingles vaccine status: never Colon cancer screening:. Date of last colonoscopy 2016 Last PSA (men): unsure Last DEXA scan: never Depression Status Was screened; Outcome positive: No; Screening Date: 06/25/2021; Screening Tool: Patient Health Questionnaire (PHQ9) REVIEW OF SYSTEMS Systems review detailed below is negative unless otherwise indicated. Constitutional: fever, sweats, chills, night sweats, weight loss, weight gain, fatigue Eyes: diplopia, loss of vision, scotomata, blurred vision, corrective lenses, eye pain, conjunctivitis, excessive lacrimation ENT/Mouth: hearing loss with use of hearing aids, tinnitus, sinus pain or congestion, postnasal drip, epistaxis, gingival bleeding, mouth pain or sores, sore throat, hoarseness, dysphagia, oral dryness Cardiovascular: chest pain, palpitations, syncope, upper extremity edema, lower extremity edema, calf discomfort Respiratory: cough, shortness of breath, dyspnea with exertion, wheezing, hemoptysis, pleurisy Gastrointestinal: heartburn, nausea, vomiting, abdominal pain, abdominal cramping, jaundice, constipation, diarrhea, hematemesis, hematochezia, melena, hemmorrhoids, anorexia Male Genitourinary: Dysuria, flank pain, foul smelling urine, urinary urgency, urinary hesitancy, urinary frequency, nocturia, hematuria, urinary incontinence, penile discharge, penile pain, straining, testicular/scrotal pain Musculoskeletal: muscle pain, joint pain or swelling, bone pain, back pain, muscle weakness, spine tenderness. Minor foot swelling due to gout. Skin: rash, nodules, lesions, pruritus, alopecia, dry skin, change in nail appearance, easy bruising, petechiae, radiation therapy effect Neurologic: headache, confusion, memory loss, speech changes, tremor, seizures, syncope, dizziness/lightheadedness, weakness, peripheral numbness or tingling, abnormal gait Psychiatric: depression, anxiety Endocrine: polyuria, polydipsia, hot flashes, cold or heat intolerance Hematologic: epistaxis, gingival bleeding, bruising, petechiae Lymphatic: lymphadenopathy, lymphedema Allergy/Immunologic: eczema, frequent mucous membrane infections, frequent respiratory infections, recurrent urticaria, frequent skin infections VITAL SIGNS There were no vitals taken for this visit. No weight on file for this encounter. Weight 240 lb at last visit, now 265 lbs. PHYSICAL EXAM Patient appears comfortable, well-developed, well-nourished, and in no acute distress. Skin is without rash on face. No purpura. Residual hyperpigmentation corresponding to dermatome of shingles rash left torso not examined today. HEENT: Normocephalic, atraumatic. Anicteric sclera, conjunctiva clear. PER, EOMF. External ears WNL. Mouth: Tongue without ulcers or thrush. Neck is supple. Lungs with unlabored breathing and no accessory muscle use. Abdomen: nondistended. Splenomegaly not examined. Not palpable when last examined. Spleen was previously ~ 12 cm below LCM. Extremities reveal no pedal edema. No clubbing or cyanosis. Musculoskeletal: No apparent inflammatory arthropathy. Neurologic: No focal motor deficits and no abnormal mental status. Psychiatric: Oriented to person, time and place. Mood and affect appropriate. Appropriate judgment and insight. Memory intact. LABORATORY CBC Latest Ref Rng & Units 09/22/2011 12/14/2011 03/07/2012 HEMOGLOBIN, DIAMANTE 13.0 - 17.0 g/dL 14.5 14.1 14.8 MCV, DIAMANTE 80.0 - 100.0 fL 85.2 86.2 85.3 MCH, DIAMANTE 26.0 - 34.0 pg 28.3 28.7 28.7 MCHC, DIAMANTE 30.5 - 36.0 g/dL 33.3 33.3 33.6 RDW, DIAMANTE 11.5 - 15.0 % 14.0 14.2 13.5 MPV, DIAMANTE 9.0 - 12.7 fL 10.4 10.1 10.4 NEUT%, DIAMANTE 42 - 75 % 75.1(H) 67 53 MONO%, DIAMANTE 2 - 9 % 8.9 7 9 EOS%, DIAMANTE 0 - 6 % 3.5 6 8(H) BASO%, DIAMANTE 0 - 2 % 0.3 - 1 ABS NEUT, DIAMANTE 2 - 8 k/uL 7.55(H) 4.15 3.13 ABS LYMP, DIAMANTE 1 - 6 k/uL 1.22 1.24 1.62 ABS MONO, DIAMANTE 0 - 1 k/uL 0.89(H) 0.43 0.52 ABS EOS, DIAMANTE 0 - 1 k/uL 0.35 0.37 0.46 ABS BASO, DIAMANTE 0 - 1 k/uL 0.03 - 0.06 164 CMP Latest Ref Rng & Units 03/12/2021 03/27/2021 06/25/2021 SODIUM 136 - 145 MMOL/L 137 137 139 SODIUM, DIAMANTE 136 - 145 mmol/L - - - SODIUM, DIAMANTE 136 - 145 mmol/L - - - POTASSIUM 3.5 - 5.1 MMOL/L 3.8 3.9 3.7 POTASSIUM, DIAMANTE 3.5 - 5.1 mmol/L - - - CHLORIDE 98 - 107 MMOL/L 106 102 102 CHLORIDE, DIAMANTE 98 - 107 mmol/L - - - CO2 21 - 32 MMOL/L 27.0 31.0 28.0 CO2, DIAMANTE 21.0 - 32.0 mmol/L - - - GLUCOSE 70 - 100 MG/DL 114(H) 99 108(H) GLUCOSE, DIAMANTE 70 - 99 mg/dL - - - BUN 7 - 26 MG/DL 22 22 19 BUN, DIAMANTE 7 - 18 mg/dL - - - CREATININE 0.5 - 1.4 MG/DL 1.06 1.13 1.22 CREATININE, DIAMANTE 0.8 - 1.3 mg/dL - - - EGFR- - Greater than 60 Greater than 60 Greater than 60 PROTEIN, TOTAL 6.0 - 8.5 GM/DL 7.3 7.7 7.7 TOTAL PROTEIN, DIAMANTE 6.4 - 8.2 g/dL - - - ALBUMIN 3.2 - 5.0 GM/DL 4.3 4.3 4.5 ALBUMIN, DIAMANTE 3.4 - 5.0 g/dL - - - CALCIUM, DIAMANTE 8.5 - 10.1 mg/dL - - - CALCIUM, TOTAL 8.5 - 10.5 MG/DL 9.5 9.8 9.5 BILIRUBIN, TOTAL 0.2 - 1.0 MG/DL 1.10(H) 1.30(H) 0.90 AST 8 - 34 U/L 16 17 27 AST, DIAMANTE 15 - 37 U/L - - - ALT 13 - 61 U/L 17 21 32 ALT, DIAMANTE 30 - 65 U/L - - - ALKALINE PHOSPHATASE 45 - 117 U/L 115 115 123(H) IMPRESSION 1. 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 2. Asymptomatic mild pancytopenia resolved 3. Hx of shingles 12/2019, possibly with post herpetic neuralgia. 4. Hx of ITP 5. Nightsweats probably r/t SMZL, much improved. 6. Hypertension. 7. Meniere's disease 8. Hx of borderline range B12 level, but MMA normal. 9. COVID19 infection 05/28/21 and again Spring 2021. PLAN He completed 8 weekly Rituxan infusions, and symptoms and splenomegaly much improved/nearly resolved. We will continue to monitor his labs. We will avoid maintenance Rituxan in the setting of the COVID19 pandemic. He is instructed to take a COVID19 vaccine booster ~ 3 mos after his latest infection. He requests lab testing q 6 weeks. . All of his questions were answered to his satisfaction. Orders Placed This Encounter CBC with Differential Standing Status: Standing Number of Occurrences: 9 Standing Expiration Date: 03/31/2023 CMP Standing Status: Future Standing Expiration Date: 06/02/2022 LD LACTATE DEHYDRO Standing Status: Future Standing Expiration Date: 06/02/2022 Guillaume Garcia MD Copies José Antonio Meyer MD (Referring) documented in this encounter [facility] 11-03-2021 Note Chief Complaint Evaluation and management of longstanding progressive hearing loss. History of Present IllnessHistory of present illness: This patient is referred by Dr. Linares for possible cochlear implant for rehabilitation of progressive hearing loss. The patient arrives by himself today. The approximate duration of the hearing loss is 20+ years. They describe the onset as gradual. The hearing loss is progressive over time. When asked about ear pain, discharge from ear, tinnitus, dizziness or vertigo, the patient admits to intermittent episodes of ET closing. He had hearing aides placed several years ago which helped significantly but the improvement has decreased over time. 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 This has resolved with medication. The patient currently is aided in bilateral ears with limited benefit and appears to be motivated with realistic expectations. When inquired about a history of prior ear surgery, noise exposure, exposure to ototoxic drugs or agents, and family history of hearing loss, They deny. He notes a family history of sinus issues but nothing with the ears. 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 The patient?s current medications, active allergies and list of medical problems were reviewed in the EHR and confirmed electronically. The patient?s current medications, active allergies and list of medical problems were reviewed in the EHR and confirmed electronically. Physical Examination: CONSTITUTIONAL: No acute distress VOICE: No hoarseness or other abnormality RESPIRATION: Breathing comfortably, no stridor CV: No clubbing/cyanosis/edema in hands EYES: EOM intact, sclera clear NEURO: Alert and oriented times 3, Cranial nerves II-XII grossly intact and symmetric bilaterally HEAD AND FACE: Symmetric facial features, no masses or lesions RIGHT EAR: Normal external ear and post auricular area, no visible lesions, external auditory canal patent, tympanic membrane intact, no retraction, no signs of mass, effusion, or infection within the middle ear LEFT EAR: Normal external ear and post auricular area, no visible lesions, external auditory canal patent, tympanic membrane intact, no retraction, no signs of mass, effusion, or infection within the middle ear NOSE: Deferred due to Covid-19 pandemic. ORAL CAVITY/OROPHARYNX/LIPS: Deferred due to Covid-19 pandemic. PHARYNGEAL TATE: Deferred due to Covid-19 pandemic. NECK/LYMPH: No LAD, no thyroid masses, trachea midline SKIN: Neck and facial skin is without scar or injury PSYCH: Alert and oriented with appropriate mood and affect Diagnostic testing: Audiometric: The audiogram showed severe to profound hearing loss with poor recognition words score. Aided words score in right ear is 0 Aided words score in left ear is 0 Aided sentence score in right ear is 0 Aided sentence score in left ear is 0 I personally reviewed the available patient?s external record and independently reviewed their audiometric testing as detailed in my note and agree with the detailed report. Impression: Bilateral sensorineural hearing loss Recommendation: Audiometric testing was reviewed with the patient. The patient meets the audiometric criteria for cochlear implantation. At this time, he is not ready to proceed with implantation. We discussed the technology, procedure, outcome and indications. He voiced understanding. Virtual follow up in six months. I discussed with the patient the complexity of my medical decision making including the treatment and testing rational, indications of their elective procedure and possible adverse effects and/or complications. Based on the provided documentation and my professional assessment of this patient?s progressive chronic condition, the complexity of evaluation and treatment is moderate. This note was created using speech recognition postpartum nurse software/or [employer]e postpartum nurse services. Despite proofreading, several typographical errors might be present that might affect the meaning of the content. Please call with any questions. By signing my name below, I, Mi Flores, attest that this documentation has been prepared under the direction and in the presence of Dr. Luciano. All medical record entries made by the Mi were at my direction and personally dictated by me. I have reviewed the chart and agree that the record accurately reflects my personal performance of the history, physical exam, discussion, and plan. Active Problems Bilateral sensorineural hearing loss (389.18) (H90.3) Current Meds Medication NameInstruction Kelley M20 20 MEQ Oral Tablet Extended Release Metoprolol Succinate ER 50 MG Oral Tablet Extended Release 24 Hour Triamterene-HCTZ 37.5-25 MG Oral Capsule 'Scores and Scales' Signatures Electronically signed by : Elmer (more content not included)... [employer] 08-05-2021 History of Present illness Narrative Alessio Gold, age 56 years, arrives to clinic on 08/05/2021 for a cochlear implant evaluation. Alessio reported hearing loss for 10+ years that has steadily declined. He arrived with [employer] B90 hearing aids that were recently reprogrammed in June by his fitting backer up and purchased in 2019. Alessio reported intravenous oncology treatment in the summer of 2020 but denied noticeable hearing changes during treatment. He denied tinnitus, ear pain, drainage, infection, and dizziness.Alessio works in [employer] and has noticed his hearing loss effecting his work and home life.Patient's preferred language: EnglishPreferred language of the parent, legal guardian or surrogate decision-maker of this minor or incapacitated patient: Not ApplicableNo overt signs of domestic violence/neglect/abuse.No referral made to [facility] [employer].Pain not interfering with optimal level of function or ability to assess and/or treat.Pain Scale rank: 0/10Pain Scale used: NumericNo referral made to primary care provider (PCP).Factors/Barriers influencing patient's ability to complete assessment or learn: hearing.Person taught: patient.Readiness to learn: no barriers.Results of Teaching/Counseling: verbalize recall / understanding and teaching complete. [facility] Work Phone: Chief complaint Narrative - Reported Cochlear implant evaluationdevice selectionhearing assessment [facility] Work Phone: Chief complaint Narrative - Reported Evaluation and management of longstanding progressive hearing loss. XE-Ujhwjumbnwmg-[facility] DO Work Phone: [facility] Diagnosis Polyarthralgia- Primary Pain in joint, multiple sites Acute left-sided low back pain without sciatica Left hip pain Pain in joint, pelvic region and thigh Chronic pain of left knee Pain in joint, lower leg Thrombocytopenia, unspecified (HCC) Thrombocytopenia, unspecified Well adult health check Routine general medical examination at a health care facility Screening PSA (prostate specific antigen) Special screening for malignant neoplasm of prostate Screening for lipid disorders [facility] Diagnosis Hyperglycemia- Primary Other abnormal glucose [facility] 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 Linares for possible cochlear implant for rehabilitation of progressive hearing loss. The patient arrives by himself today. * The approximate duration of the hearing loss is 20+ years. They describe the onset as gradual. The hearing loss is progressive over time. When asked about ear pain, discharge from ear, tinnitus, dizziness or vertigo, the patient admits to intermittent episodes of ET closing. He had hearing aides placed several years ago which helped significantly but the improvement has decreased over time. 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 This has resolved with medication. * The patient currently is aided in bilateral ears with limited benefit and appears to be motivated with realistic expectations. * When inquired about a history of prior ear surgery, noise exposure, exposure to ototoxic drugs or agents, and family history of hearing loss, They deny. He notes a family history of sinus issues but nothing with the ears. He worked in [employer] for 32 years and wore a headset everyday that he worked. * The patient s current medications, active allergies and list of medical problems were reviewed in the EHR and confirmed electronically. * The patient s current medications, active allergies and list of medical problems were reviewed in the EHR and confirmed electronically. * Physical Examination: * CONSTITUTIONAL: No acute distress * VOICE: No hoarseness or other abnormality * RESPIRATION: Breathing comfortably, no stridor * CV: No clubbing/cyanosis/edema in hands * EYES: EOM intact, sclera clear * NEURO: Alert and oriented times 3, Cranial nerves II-XII grossly intact and symmetric bilaterally * HEAD AND FACE: Symmetric facial features, no masses or lesions * RIGHT EAR: Normal external ear and post auricular area, no visible lesions, external auditory canalpatent, tympanic membrane intact, no retraction, no signs of mass, effusion, or infection within the middle ear * LEFT EAR: Normal external ear and post auricular area, no visible lesions, external auditory canal patent, tympanic membrane intact, no retraction, no signs of mass, effusion, or infection within themiddle ear * NOSE: Deferred due to Covid-19 pandemic. * ORAL CAVITY/OROPHARYNX/LIPS: Deferred due to Covid-19 pandemic. * PHARYNGEAL TATE: Deferred due to Covid-19 pandemic. * NECK/LYMPH: No LAD, no thyroid masses, trachea midline * SKIN: Neck and facial skin is without scar or injury * PSYCH: Alert and oriented with appropriate mood and affect * Diagnostic testing: * Audiometric: * The audiogram showed severe to profound hearing loss with poor recognition words score. * Aided words score in right ear is 0 * Aided words score in left ear is 0 * Aided sentence score in right ear is 0 * Aided sentence score in left ear is 0 * I personally reviewed the available patient s external record and independently reviewed their audiometric testing as detailed in my note and agree with the detailed report. * Impression: * Bilateral sensorineural hearing loss * Recommendation: * Audiometric testing was reviewed with the patient. The patient meets the audiometric criteria for cochlear implantation. At this time, he is not ready to proceed with implantation. We discussed the technology, procedure, outcome and indications. He voiced understanding. * Virtual follow up in six months. * I discussed with the patient the complexity of my medical decision making including the treatment and testing rational, indications of their elective procedure and possible adverse effects and/or complications. Based on the provided documentation and my professional assessment of this patient s prog ressive chronic condition, the complexity of evaluation and treatment is moderate. * This note was created using speech recognition postpartum nurse software/or [employer] postpartum nurse services. Despite proofreading, several typographical errors might be present that might affect the meaning of the content. Please call with any questions. * By signing my name below, I, Mi Flores, attest that this documentation has been prepared under the direction and in the presence of Dr. Luciano. All medical record entries made by the Scribe were at my direction and personally dictated by me. I have reviewed the chart and agree that the record accurately reflects my personal performance of the history, physical exam, discussion, and plan. AX-Tbrkqxkgrqeh-[address] DO Work Phone: Summary Purpose Family History No Family History Records FoundNo Family History Records FoundNo Family History Records FoundNo Family History Records Found Advance Directives No Advanced Directives Records FoundNo Advanced Directives Records FoundNo Advanced Directives Records FoundNo Advanced Directives Records Found Reason for Referral Specialty Diagnoses / Procedures Referred By Contac t Referred To Contact Orthopedics Diagnoses Polyarthralgia Acute left-sided low back pain without sciatica Left hip pain Chronic pain of left knee Procedures CONSULT TO ORTHOPAEDICS OFFICE/OUTPATIENT [facility] 60-74 MINUTES José Antonio Meyer MD [address] [place] [address] Referral ID Status Reason Start Date Expiration Date Visits Requested Visits Authorized [id number] Pending Review PCP Requested Referral 06/15/2022 06/15/2023 1 1 Specialty Diagnoses / Procedures Referred By Contac t Referred To Contact XR IMAGING Diagnoses Acute left-sided low back pain without sciatica Procedures XR LUMBAR PARS DEFECT 4V AP/LAT/BOTH OBL RADEX SPINE LUMBOSACRAL MINIMUM 4 VIEWS José Antonio Meyer MD [address] [place] [address] Xr Imaging Referral ID Status Reason Start Date Expiration Date V isits Requested Visits Authorized [id number] Closed Auto-Generated Referral Clearance Not Met -Financial Clearance Bypassed 06/15/2022 09/19/2022 1 1 Specialty Diagnoses / Procedures Referred By Contac t Referred To Contact XR IMAGING Diagnoses Left hip pain Procedures XR HIP GENERAL 3V PELV/AP/LAT LEFT RADEX HIP UNILATERAL WITH PELVIS 2-3 VIEWS José Antonio Meyre MD [address] [place] [address] Xr Imaging Referral ID Status Reason Start Date Expiration Date V isits Requested Visits Authorized [id number] Closed Auto-Generate d Referral 06/15/2022 09/19/2022 1 1 Specialty Diagnoses / Procedures Referred By Contac t Referred To Contact XR IMAGING Diagnoses Chronic pain of left knee Procedures XR KNEE INJURY 4V AP/LAT/OBLS LEFT RADIOLOGIC EXAM KNEE COMPLETE 4/MORE VIEWS José Antonio Meyer MD [address] [place] [address] Xr Imaging Referral ID Status Reason Start Date Expiration Date V isits Requested Visits Authorized [id number] Closed Auto-Generate d Referral 06/15/2022 09/19/2022 1 1 Additional Source Comments (unrecognized sect ion and content) No Status Records FoundNo Status Records FoundNo Status Records FoundNo Status Records Found INFORMATION SOURCE (unrecogn ized section and content) DATE CREATED AUTHOR AUTHOR'S ORGANIZ ATION 11/04/2021 [facility] DATE CREATED AUTHOR AUTHOR'S ORGANIZ ATION 10/12/2023 [facility] DATE CREATED AUTHOR AUTHOR'S ORGANIZ ATION 10/29/2023 [facility] Ce nter Source Comments (unrecognize d section and content) In the event this informatio n is protected by the Federal Confidentiality of Alcohol and Drug Abuse Patient Records regulations: The Federal rules restrict any use of the information to criminally investigate or prosecute any alcohol or drug abuse patient.[facility] the event this information is protected by the Federal Confidentiality of Alcohol and Drug Abuse Patient Records regulations: The Federal rules restrict any use of the information to criminally investigate or prosecute any alcohol or drug abuse patient.[facility] the event this information is protected by the Federal Confidentiality of Alcohol and Drug Abuse Patient Records regulations: The Federal rules restrict any use of the information to criminally investigate or prosecute any alcohol or drug abuse patient.[facility] Hospital[facility] the event this information is protected by the Federal Confidentiality of Alcohol and Drug Abuse Patient Records regulations: The Federal rules restrict any use of the information to criminally investigate or prosecute any alcohol or drug abuse patient.[facility] Hospital[facility] the event this information is protected by the Federal Confidentiality of Alcohol and Drug Abuse Patient Records regulations: The Federal rules restrict any use of the information to criminally investigate or prosecute any alcohol or drug abuse patient.[facility] Hospital[facility] the event this information is protected by the Federal Confidentiality of Alcohol and Drug Abuse Patient Records regulations: The Federal rules restrict any use of the information to criminally investigate or prosecute any alcohol or drug abuse patient.[facility] Hospital[facility] the event this information is protected by the Federal Confidentiality of Alcohol and Drug Abuse Patient Records regulations: The Federal rules restrict any use of the information to criminally investigate or prosecute any alcohol or drug abuse patient.[facility] Hospital[facility] the event this information is protected by the Federal Confidentiality of Alcohol and Drug Abuse Patient Records regulations: The Federal rules restrict any use of the information to criminally investigate or prosecute any alcohol or drug abuse patient.[facility] Hospital[facility] the event this information is protected by the Federal Confidentiality of Alcohol and Drug Abuse Patient Records regulations: The Federal rules restrict any use of the information to criminally investigate or prosecute any alcohol or drug abuse patient.[facility] Hospital[facility] the event this information is protected by the Federal Confidentiality of Alcohol and Drug Abuse Patient Records regulations: The Federal rules restrict any use of the information to criminally investigate or prosecute any alcohol or drug abuse patient.[facility] Hospital[facility] the event this information is protected by the Federal Confidentiality of Alcohol and Drug Abuse Patient Records regulations: The Federal rules restrict any use of the information to criminally investigate or prosecute any alcohol or drug abuse patient.[facility] Hospital[facility] the event this information is protected by the Federal Confidentiality of Alcohol and Drug Abuse Patient Records regulations: The Federal rules restrict any use of the information to criminally investigate or prosecute any alcohol or drug abuse patient.[facility] HospitalIn the event this information is protected by the Federal Confidentiality of Alcohol and Drug Abuse Patient Records regulations: The Federal rules restrict any use of the information to criminally investigate or prosecute any alcohol or drug abuse patient.[facility] HospitalIn the event this information is protected by the Federal Confidentiality of Alcohol and Drug Abuse Patient Records regulations: The Federal rules restrict any use of the information to criminally investigate or prosecute any alcohol or drug abuse patient.[facility] Hospital[facility] the event this information is protected by the Federal Confidentiality of Alcohol and Drug Abuse Patient Records regulations: The Federal rules restrict any use of the information to criminally investigate or prosecute any alcohol or drug abuse patient.[facility] HospitalIn the event this information is protected by the Federal Confidentiality of Alcohol and Drug Abuse Patient Records regulations: The Federal rules restrict any use of the information to criminally investigate or prosecute any alcohol or drug abuse patient.[facility] HospitalIn the event this information is protected by the Federal Confidentiality of Alcohol and Drug Abuse Patient Records regulations: The Federal rules restrict any use of the information to criminally investigate or prosecute any alcohol or drug abuse patient.[facility] Care Teams (unrecognized sec tion and content) Hospice Plan Administrator Relationship Specialty Start Date End Date José Antonio Meyer MD PCP - General 08/20/08 Hospice Plan Administrator Relationship Specialty Start Date End Date José Antonio Meyer MD PCP - General 08/20/08 Hospice Plan Administrator Relationship Specialty Start Date End Date José Antonio Meyer MD PCP - General 08/20/08 Hospice Plan Administrator Relationship Specialty Start Date End Date José Antonio Meyer MD PCP - General 08/20/08 Hospice Plan Administrator Relationship Specialty Start Date End Date José Antonio Meyer MD PCP - General 08/20/08 Hospice Plan Administrator Relationship Specialty Start Date End Date José Antonio Meyer MD PCP - General 08/20/08 Hospice Plan Administrator Relationship Specialty Start Date End Date José Antonio Meyer MD PCP - General 08/20/08 Hospice Plan Administrator Relationship Specialty Start Date End Date José Antonio Meyer MD PCP - General 08/20/08 Hospice Plan Administrator Relationship Specialty Start Date End Date José Antonio Meyer MD PCP - General 08/20/08 Tierney Palmer PA-C [address] [place] [address] Hematology/Oncology 11/16/22 Hospice Plan Administrator Relationship Specialty Start Date End Date José Antonio Meyer MD PCP - General 08/20/08 Tierney Palmer PA-C [address] [place] [address] Hematology/Oncology 11/16/22 Hospice Plan Administrator Relationship Specialty Start Date End Date José Antonio Meyer MD PCP - General 08/20/08 Tierney Palmer PA-C [address] [place] [address] Hematology/Oncology 11/16/22 Hospice Plan Administrator Relationship Specialty Start Date End Date José Antonio Meyer MD PCP - General 08/20/08 Tierney Palmer PA-C [address] [place] [address] Hematology/Oncology 11/16/22 Hospice Plan Administrator Relationship Specialty Start Date End Date José Antonio Meyer MD [address] [place] [address] PCP - General Family Medicine 08/20/08 Tierney Palmer PA-C [address] [place] [address] Hematology/Oncology 11/16/22 Lupillo Garcia MD [address] [facility] [address] [place] [address] Gastroenterology 05/25/17 Omid Pickering MD [address] [facility] [address] [place] [address] Orthopedics 10/12/19 Hospice Plan Administrator Relationship Specialty Start Date End Date José Antonio Meyer MD [address] [place], [place] [id number] PCP - General Family Medicine 08/20/08 Tierney Palmer PA-C [address] [place] [phone] Hematology/Oncology 11/16/22 Lupillo Garcia MD [address] [place] [address] Gastroenterology 05/25/17 Omid Pickering MD [address] [place], [place] [id number] Orthopedics 10/12/19 Reason for Visit (unrecogniz ed section and content) Specialty Diagnoses / Procedures Referred By Contac t Referred To Contact Hematology/Oncology / HEMATOLOGY/ONCOLOGY Diagnoses Video Procedures OFFICE/OUTPATIENT NEW MODERATE MDM 45-59 MINUTES VIDEO SPEC EST Self[facility] Radha Mitchell, MD [address] [place] [address] Referral ID Status Reason Start Date Expiration Date Visits Re quested Visits Authorized [id number] Closed 03/31/2022 09/19/2022 1 1 Reason Comments Results Reason Comments Acute Visit Left leg pain Specialty Diagnoses / Procedures Referred By Contac t Referred To Contact FAMILY MEDICINE Diagnoses left leg pain Procedures est patient José Antonio Meyer MD [address] [place] [address] [facility] [address] [place] [address] Referral ID Status Reason Start Date Expiration Date V isits Requested Visits Authorized [id number] Closed OON/Self Pay Override 06/15/2022 09/19/2022 1 1 Reason Comments Recheck Specialty Diagnoses / Procedures Referred By Contac t Referred To Contact HEMATOLOGY/ONCOLOGY Diagnoses B cell lymphoma Procedures B cell lymphoma Guillaume Garcia MD [address] [place] [address] [address] [place] [address] Referral ID Status Reason Start Date Expiration Date Visits Requested Visits Authorized [id number] Pending Review OON/Self Pay Override 04/06/2022 07/05/2022 1 1 Reason Comments Refill Request Reason Comments Appointment SPOKE WITH PT AND SC HEDULED HIS FOLLOW UP TO SEE LISA IN SEPTEMBER. PT IS AWARE TO HAVE HIS LABS DRAWN EVERY 2 MONTHS. PT STATED HE WILL GO OFF SITE IN [place] TO HAVE LABS DRAWN Reason Comments Pre-Op Exam Reason Comments [facility] - Surgical Clearance Signed FOR RECORDS PERTAINING TO PATIENTS WHO ARE OR HAVE BEEN ENROLLED IN A CHEMICAL DEPENDENCY/SUBSTANCEABUSE PROGRAM, SOME INFORMATION MAY BE OMITTED. This clinical summary was aggregated from multiple sources. Caution should be exercised in using it in the provision of clinical care. This summary normalizes information from multiple sources, and as a consequence, information in this document may materially change the coding, format and clinical context of patient data. In addition, data may be omitted in some cases. CLINICAL DECISIONS SHOULD BE BASED ON THE PRIMARY CLINICAL RECORDS. [facility]. provides no warranty or guarantee of the accuracy or completeness of information in this document.
[2023-11-08] MEDS: Cefazolin 3 GM in 0.9% Normal Saline (100mL Bag) 100 ML IV (10:00)
--- NOTE | 2023-11-08 10:00 | GANG_PTH ---
PATHOLOGY RESULTS PATIENT: PÉREZ ARAIZA [place] [facility] [place][id number] AGE/SX: 58/M ROOM: RE11/08/[address]: Dr. Riccardo Sweeney DPM : 1965 BED: DIS: 11/08/2023 SPEC #: [id number] RECD: 11/08/23 13:43 STATUS: BLAISE JOHANNY #: [id number] FRIDA: 11/08/23 10:[address]: Riccardo Sweeney DEPT: SURGICAL PATHOLOGY RECD BY: Azalea Hatch ENTERED: 11/08/23 13:44 SP TYPE: GANGLION OTHR DR: Dr. José Antonio Merritt MD Tissues: GANGLION CYST Procedures: Surgery Specimen Level III HEADER OPERATION: Excision of right foot ganglion cyst PRE-OP DIAGNOSIS: Ganglion cyst of foot TISSUE SUBMITTED: Right foot ganglion cyst MICROSCOPIC DIAGNOSIS Ganglion cyst of right foot, excision: Ganglion cyst with organizing blood clots, mild chronic inflammation and fibrosis. AM:susie 11/09/2023 MICROSCOPIC DESCRIPTION Slides are reviewed. GROSS DESCRIPTION Received in fixative is one container labeled with the patient's name and designated right foot ganglion cyst. The specimen consists of a piece of grimaldo, indurated tissue measuring 2.5 x 1.0 x 1.0 cm. The specimen is serially sectioned and reveal focally congested cut surfaces. The entire specimen is submitted in one cassette. / SJ:susie 11/08/2023 TC:5 CPT: 34265
[2023-11-08] MEDS: Lidocaine 1% (20 ml mdv) 20 ML Vial (10:16)
[2023-11-08] MEDS: Bupivacaine Mpf 0.5% 30 ML VIAL (10:38)
--- NOTE | 2023-11-08 10:56 | OP.PCM_ITS ---
Problems Associated Problem List Diagnoses (1) Ganglion, right ankle and foot: (2) Pain in right foot: Report of Operation Date of Procedure: 11/08/23 Pre-Operative Diagnosis: 1) Ganglionic Cyst, Right Foot Post-Operative Diagnosis: Same Surgery/Procedure Performed:: Excision ganglionic cyst right foot Description of Surgical Findings:: Patient brought back to the operating placed comfortably in supine position on the operating room table. Patient induced under MAC anesthesia. Foot position using blankets and hip bump to knock on external rotation. All osseous prominences offloaded prevent any compression neuropraxia's. Well-padded right ankle tourniquet applied. Local anesthesia performed using sterile technique via local infiltration technique to the ganglionic cyst or coming off of the peroneus tertius tendon. Right lower extremity scrubbed prepped and draped using typical aseptic fashion. Once cleared by anesthesia right lower extremity was elevated exsanguinated t ourniquet was inflated to 250 mmHg. A linear incision directly over the ganglionic cyst at the peroneus tertius insertional site was drawn approximately 4 cm in length. Full-thickness incision was made using a 15 blade through epidermis into subcutaneous tissue. Care was taken to identify the sural nerve and the subcutaneous tissue and this was retracted laterally off the cyst and protected with blunt atraumatic retraction. The cyst itself was carefully dissected out and removed and the stalk was identified and the cyst was excised using combination of pickups and iris dissecting scissors stalk was identified and it was excised at the level of the stalk and passed the back table and sent to pathology for further examination the stalk was then cauterized with with Bovie incisional site was flushed with copious amounts normal sterile saline deep and subcutaneous closure performed with buried interrupted 3-0 Vicryl skin closure performed with horizontal mattress 3-0 nylon tourniquet was let down. Total tourniquet time was noted to be 19 minutes. Additional local anesthesia was performed to the site using atraumatic and aseptic technique and a local filtration block. 25 total cc of 0.5% Marcaine plain and 5 cc of 2.0% lidocaine plain were used. Incisional site dressed with Betadine Adaptic 4 x 4's Kerlix and a well-padded Dixon compression dressing. Patient was transported to PACU vital signs stable vascular status intact all digits for further monitoring prior to discharge. Patient tolerated procedure and anesthesia well in apparent satisfactory condition. No complications Large ganglionic cyst was was found noted to be approximately 2.5 x 1.0 cm in size and came off the peroneus tertius tendon sheath Surgeon: Riccardo Sweeney maintenance helper utility engineer: None (angeline GIBSON PGYI ) Admit VTE Documentation VTE Present on Admission: Yes VTE Pharm Prophylaxis ordered?: Yes
== END 2023-11-08 11:34 | disposition home or self-care (01) ==
LOC: SDC 08:24 → AC 08:26
PROVIDERS: PCP Family Medicine; Referring Provider Podiatrist; Visit Provider Podiatrist
PROC: (CPT 28090; principal; 2023-11-08 09:45)
DX: M67.471 Ganglion, right ankle and foot (principal); M79.671 Pain in right foot; Z87.891 Personal history of nicotine dependence; I10 Essential (primary) hypertension; Z85.820 Personal history of malignant melanoma of skin
CPT/HCPCS: 28090; 01470; 88304; J7120; J2405

== ENCOUNTER → 2023-12-06 | Outpatient (CLI) | payer OTHER, SELFPAY ==
--- NOTE | 2023-12-06 08:24 | EKG12_ITS ---
Test Reason : PRE OP Blood Pressure : / mmHG Vent. Rate : 095 BPM Atrial Rate : 095 BPM P-R Int : 170 ms QRS Dur : 082 ms QT Int : 360 ms P-R-T Axes : 047 041 057 degrees QTc Int : 452 ms Normal sinus rhythm Normal ECG Confirmed by ALEX GREENFIELD, CORTEZ ([id number]), make up editor JOESPH HUBBARD ([id number]) on 12/06/2023 11:39:06 AM Referred By: Omid Pickering Confirmed By:CORTEZ JOHNSON MD
[2023-12-06 09:07] LABS: Absolute Lymphocyte Count 1.18 X10^3/uL (0.83-4.51); Absolute Neutrophil Count 3.6 X10^3/uL (2.0-7.7); Basophil# 0.03 X10^3/uL; Basophil% 0.5 % (0-1); Eosinophil# 0.29 X10^3/uL; Eosinophils% 5.1 % (0-5); Hematocrit 44.3 % (40-54); Hemoglobin 14.5 g/dL (13.0-16.5); Lymphocyte # 1.18 X10^3/ul (0.83-4.51); Lymphocyte % 20.7 % (19-41); Mean Corp Hgb Conc 32.7 g/dL (32-36); Mean Corpuscular Hgb 28.3 pg (27.0-32.0); Mean Corpuscular Volume 86.5 fL (80-94); Mean Platelet Vol. 10.4 fl (6.2-12.0); Monocyte# 0.49 X10^3/uL; Monocyte% 8.6 % (0-10); NRBC Flagged by Analyzer 0 % (0-5); Neutrophil # 3.63 X10^3/uL (2.7-7.7); Neutrophil % 63.7 % (47-70); Platelet Count 145 K/mm3 (150-450); RBC Distribution Width CV 14.7 % (11.6-14.6); RBC Distribution Width SD 46.5 fl (35.1-43.9); Red Blood Count 5.12 M/mm3 (4.6-6.2); White Blood Count 5.7 K/mm3 (4.4-11.0)
[2023-12-06 09:42] LABS: Albumin, Serum 3.9 g/dL (3.2-5.0); Anion Gap 2 (5-15); BUN 17 mg/dL (7-18); BUN/Creat Ratio 13.2 RATIO (10-20); Calcium,Total 9.1 mg/dL (8.5-10.1); Chloride 108 mmol/L (98-107); Creatinine, Serum 1.29 mg/dL (0.70-1.30); EST Glomerular Filtration Rate 61 mL/min (>60); Est Glom Filt Rate - Afr Amer 74 mL/min (>60); Glucose 135 mg/dL (74-106); Potassium 4.7 mmol/L (3.5-5.1); Sodium Level 137 mmol/L (136-145)
== END | disposition home or self-care (01) ==
LOC: PSN 08:15
PROVIDERS: PCP Family Medicine; Referring Provider Specialist; Visit Provider Specialist
DX: Z01.818 Encounter for other preprocedural examination (principal); Z01.810 Encounter for preprocedural cardiovascular examination
CPT/HCPCS: 36415; 80048; 82040; 85025; 93005